=== PATIENT | female | born 1970 | race Caucasian/White ===

== ENCOUNTER 2022-08-16 16:27 | Emergency (ER) | payer OTHER, MEDICAID, SELFPAY ==
[2022-08-16 16:35] VITALS: BP 129/92; PULSE 79; RESP 18; TEMP 36.4; O2SAT 97; BMI 38.0
--- NOTE | 2022-08-16 16:46 | XR_ITS ---
[place] [id number] Patient Name: MISTI STONER MRN: [id number] date: 1970 Sex: F Assigned Patient Location: ER Current Patient Location: ER Accession/Order Number: [id number] Exam Date: 08/16/2022 16:52 Report Date: 08/16/2022 17:17 At the request of: RISHI FUNK Procedure: XR chest 2V EXAMINATION: XR chest 2V 08/16/2022 2:16 PM PDT, [id number]. HISTORY: cough TECHNIQUE: 2 views of the chest were acquired. COMPARISONS: None. FINDINGS: Lines/tubes/other: None. Heart and mediastinum: Within normal limits. Bones: No acute osseous abnormality. Lungs: Clear. Pleura: No pleural effusion or pneumothorax. Other: No pneumoperitoneum. IMPRESSION: No acute cardiopulmonary abnormality. Electronically authenticated by: MAGDY GRIFFIN Date: 08/16/2022 17:17
--- NOTE | 2022-08-16 16:46 | ED.GENADUL1 ---
Documented by User: Dana Hess 08/16/22 17:56 HPI - General Adult General Chief complaint: Shortness of Breath/Dyspnea Stated complaint: COUGH, PHLEGM, CHEST PAIN Time Seen by Provider: 08/16/22 16:33 Source: patient Mode of arrival: walk-in Limitations: no limitations History of Present Illness HPI narrative: 52-year-old female presents her chief complaint cough congestion. She states she is a smoker and she gets bronchitis yearly. She's had cough congestion and phlegm for last several months but is worsened over last few days. She unable to get into her doctor this week. She states this feels fatigued. She is afebrile nontoxic. Dry nonproductive cough. Related Data Home Medications Medication Instructions Recorded Confirmed buspirone 30 mg tablet 30 mg PO BID 08/16/22 08/16/22 gabapentin 300 mg capsule 300 mg PO Q8H 08/16/22 08/16/22 topiramate 25 mg tablet (Topamax) 25 mg PO DAILY 08/16/22 08/16/22 Previous Rx's Medication Instructions Recorded doxycycline hyclate 100 mg capsule 100 mg PO BID 10 days #20 caps 08/16/22 prednisone 50 mg tablet 50 mg PO DAILY 7 days #7 tabs 08/16/22 Allergies Allergy/AdvReac Type Severity Reaction Status Date / Time promethazine [From Phenergan] Allergy Intermediate Verified 08/16/22 16:40 Review of Systems ROS Narrative All Systems are negative except as noted/marked.All systems reviewed and otherwise negative PFSH PFSH Social History Smoking status: Current every day smoker Exam Narrative Exam Narrative: Nurses note and vital signs reviewed and patient is not hypoxic. General: The patient appears well and in no apparent distress. Patient is resting comfortably on cart. Skin: Warm, dry, no pallor noted. There is no rash noted. Head: Normocephalic, atraumatic Eye: Normal conjunctiva, no drainage, EOMI. PERRL Ears, Nose, Mouth, and Throat: oral mucosa is moist. Nares patent. Mouth without vesicles. Ear canals patent. Tm's without Erythema Cardiovascular: Regular Rate and Rhythm Respiratory: Patient is in no distress, no accessory muscle use, lungs are clear to auscultation, no wheezing, rales or rhonchi Back: non-tender, no CVA tenderness bilaterally to percussion. GI: Normal bowel sounds, no tenderness to palpation, no masses appreciated. No rebound, guarding, or rigidity noted. Musculoskeletal: The patient has no evidence of calf tenderness, no pitting edema, symmetrical pulses noted bilaterally Neurological: A&O x4, normal speech Psychiatric: Cooperative Constitutional Vital Signs - 24 hr 08/16/22 16:35 Temperature 97.5 F L Pulse Rate [Monitor] 79 Respiratory Rate 18 Blood Pressure [Right Arm] 129/92 H Pulse Oximetry 97 Oxygen Delivery Method Room Air Course Vital Signs Vital signs: Vital Signs Temperature 97.5 F L 08/16/22 16:35 Pulse Rate 79 08/16/22 16:35 Respiratory Rate 18 08/16/22 16:35 Blood Pressure 129/92 H 08/16/22 16:35 Pulse Oximetry 97 08/16/22 16:35 Oxygen Delivery Method Room Air 08/16/22 16:35 Temperature 97.5 F L 08/16/22 16:35 Pulse Rate 79 08/16/22 16:35 Respiratory Rate 18 08/16/22 16:35 Blood Pressure 129/92 H 08/16/22 16:35 Pulse Oximetry 97 08/16/22 16:35 Oxygen Delivery Method Room Air 08/16/22 16:35 Medical Decision Making MDM Narrative Medical decision making narrative: 52-year-old with a history of smoking presents with a nonproductive cough she states she's had for several weeks. Lung sounds are diminished throughout dry nonproductive cough x-ray shows no acute active disease. Medicated here with a DuoNeb breathing treatment. She does have inhalers at home. Patient with discharged home diagnosis of upper respiratory infection given a prescription for prednisone, doxycylline . pt cannot no smoking. She verbalized understanding. ECG Data Attestation: ?I have reviewed the pertinent ECG results. Interpretation: 1741 Sinus rhythm with rate 81 bpm ND interval 136 ms QRS duration 136 ms, no STEMI Discharge Plan Discharge Chief Complaint: Shortness of Breath/Dyspnea Clinical Impression: URI (upper respiratory infection) Patient Disposition: Home, Self-Care Time of Disposition Decision: 17:52 Condition: Good Prescriptions / Home Meds: New prednisone 50 mg tablet 50 mg PO DAILY 7 Days Qty: 7 0RF doxycycline hyclate 100 mg capsule 100 mg PO BID 10 Days Qty: 20 0RF No Action topiramate [Topamax] 25 mg tablet 25 mg PO DAILY buspirone 30 mg tablet 30 mg PO BID gabapentin 300 mg capsule 300 mg PO Q8H Instructions: Upper Respiratory Infection (ED) Stand Alone Forms: Portal Instructions Referrals: KERLINE RAJAN [Primary Care Provider] - 1 week Discharge Date/Time: 08/16/22 18:07 Documented by User: Katlin Purcell MD 08/18/22 10:09 HPI - General Adult General Chief complaint: Shortness of Breath/Dyspnea Stated complaint: COUGH, PHLEGM, CHEST PAIN Time Seen by Provider: 08/16/22 16:33 Related Data Home Medications Medication Instructions Recorded Confirmed buspirone 30 mg tablet 30 mg PO BID 08/16/22 08/16/22 gabapentin 300 mg capsule 300 mg PO Q8H 08/16/22 08/16/22 topiramate 25 mg tablet (Topamax) 25 mg PO DAILY 08/16/22 08/16/22 Previous Rx's Medication Instructions Recorded doxycycline hyclate 100 mg capsule 100 mg PO BID 10 days #20 caps 08/16/22 prednisone 50 mg tablet 50 mg PO DAILY 7 days #7 tabs 08/16/22 Allergies Allergy/AdvReac Type Severity Reaction Status Date / Time promethazine [From Phenergan] Allergy Intermediate Verified 08/16/22 16:40 PFSH PFSH Social History Smoking status: Current every day smoker Exam Constitutional Vital Signs - 24 hr 08/16/22 16:35 Temperature 97.5 F L Pulse Rate [Monitor] 79 Respiratory Rate 18 Blood Pressure [Right Arm] 129/92 H Pulse Oximetry 97 Oxygen Delivery Method Room Air Course Vital Signs Vital signs: Vital Signs Temperature 97.5 F L 08/16/22 16:35 Pulse Rate 79 08/16/22 16:35 Respiratory Rate 18 08/16/22 16:35 Blood Pressure 129/92 H 08/16/22 16:35 Pulse Oximetry 97 08/16/22 16:35 Oxygen Delivery Method Room Air 08/16/22 16:35 Temperature 97.5 F L 08/16/22 16:35 Pulse Rate 79 08/16/22 16:35 Respiratory Rate 18 08/16/22 16:35 Blood Pressure 129/92 H 08/16/22 16:35 Pulse Oximetry 97 08/16/22 16:35 Oxygen Delivery Method Room Air 08/16/22 16:35 Medical Decision Making MDM Narrative Medical decision making narrative: 52-year-old with a history of smoking presents with a nonproductive cough she states she's had for several weeks. Lung sounds are diminished throughout dry nonproductive cough x-ray shows no acute active disease. Medicated here with a DuoNeb breathing treatment. She does have inhalers at home. Patient with discharged home diagnosis of upper respiratory infection given a prescription for prednisone, doxycylline . pt cannot no smoking. She verbalized understanding. Attending physician attestation I have reviewed the mid-level documentation, agree with the documentation, medical decision making and treatment plan as outlined by the mid-level provider. Discharge Plan Discharge Chief Complaint: Shortness of Breath/Dyspnea Clinical Impression: URI (upper respiratory infection) Patient Disposition: Home, Self-Care Time of Disposition Decision: 17:52 Condition: Good Prescriptions / Home Meds: New prednisone 50 mg tablet 50 mg PO DAILY 7 Days Qty: 7 0RF doxycycline hyclate 100 mg capsule 100 mg PO BID 10 Days Qty: 20 0RF No Action topiramate [Topamax] 25 mg tablet 25 mg PO DAILY buspirone 30 mg tablet 30 mg PO BID gabapentin 300 mg capsule 300 mg PO Q8H Instructions: Upper Respiratory Infection (ED) Stand Alone Forms: Portal Instructions Referrals: KERLINE RAJAN [Primary Care Provider] - 1 week Discharge Date/Time: 08/16/22 18:07
[2022-08-16] MEDS: PREDNISONE 20 MG TABLET 40 MG PO (16:55)
[2022-08-16] MEDS: IPRATROPIUM/ALBUTEROL SULFATE 3 ML AMPUL.NEB IH (17:11)
--- NOTE | 2022-08-16 17:36 | ECG_ITS ---
[facility] Test Date: 2022-08-16 Pat Name: MISTI STONER Department: Room: - Gender: Female Behavioral Health Therapist: : 1970 Requested By: FANNIE JESSICA Order Number: [id number] Reading MD: FANNIE JESSICA Measurements Intervals [place] Rate: 81 P: 55 ME: 136 QRS: 52 QRSD: 82 T: 25 QT: 368 QTc: 406 Interpretive Statements 1100 Sinus rhythm 1102 Sinus arrhythmia Non-Specific T wave inversion in III 9110 normal ECG No previous ECG available for comparison Electronically Signed On 08-17-2022 6:33:32 EDT by FANNIE JESSICA
== END 2022-08-16 18:07 | disposition home or self-care (01) ==
PROVIDERS: Emergency Provider Emergency Medicine
DX: J06.9 Acute upper respiratory infection, unspecified (principal); F17.210 Nicotine dependence, cigarettes, uncomplicated; Z79.899 Other long term (current) drug therapy
CPT/HCPCS: 71046; 93005; 94640; 99284

== ENCOUNTER 2022-08-30 14:16 | Emergency (ER) | payer OTHER, MEDICAID, SELFPAY ==
[2022-08-30 14:25] VITALS: PULSE 88; RESP 18; TEMP 36.8; O2SAT 98; BMI 33.5
[2022-08-30 14:31] VITALS: BP 180/110
--- NOTE | 2022-08-30 15:19 | ED.GENADUL1 ---
HPI - General Adult General Chief complaint: Abdominal Pain Stated complaint: HEMMOROID Time Seen by Provider: 08/30/22 15:09 Source: patient Mode of arrival: walk-in Limitations: no limitations History of Present Illness HPI narrative: patient is a 52-year-old female who presents to the emergency department for the evaluation of hemorrhoids that been swollen and painful for the last several days. She states she has had some bleeding from the area and she has felt nauseous. She was recently seen in this emergency department for an upper respiratory infection. She states in the last several days she has had pain in the rectum associated with the swollen hemorrhoids, she has a history of the hemorrhoids but states they seem to be swollen more than normal for her. She called her doctor for an appointment and was called in a medication that she was not able to get as the pharmacy did not have it. She has been using Preparation H without improvement. She has had no fevers or vomiting. Related Data Home Medications Medication Instructions Recorded Confirmed buspirone 30 mg tablet 30 mg PO BID 08/16/22 08/16/22 gabapentin 300 mg capsule 300 mg PO Q8H 08/16/22 08/16/22 topiramate 25 mg tablet (Topamax) 25 mg PO DAILY 08/16/22 08/16/22 Previous Rx's Medication Instructions Recorded doxycycline hyclate 100 mg capsule 100 mg PO BID 10 days #20 caps 08/16/22 prednisone 50 mg tablet 50 mg PO DAILY 7 days #7 tabs 08/16/22 ketorolac 10 mg tablet 10 mg PO TID PRN pain #10 tabs 08/30/22 ondansetron 4 mg disintegrating 4 mg PO Q6H PRN nausea and 08/30/22 tablet vomiting #12 tabs Allergies Allergy/AdvReac Type Severity Reaction Status Date / Time promethazine [From Phenergan] Allergy Intermediate Verified 08/16/22 16:40 Review of Systems ROS Constitutional Denies: fever or chills Ears, nose, mouth, and throat Denies: throat pain or neck pain Respiratory Denies: shortness of breath or cough Gastrointestinal Reports: nausea and rectal pain; Denies: abdominal pain or vomiting Genitourinary Denies: painful urination Integumentary/Breast Denies: rash Allergic/Immunologic Denies: hives PFSH PFSH Social History Smoking status: Former smoker Exam Narrative Exam Narrative: Gen.: Awake, alert, in no distress Head: Normocephalic, atraumatic ENT: Moist mucous membranes Respiratory: No respiratory distress Gastrointestinal: Abdomen is soft, nondistended and nontender to palpation; rectum with swollen hemorrhoid, no thrombosis or active bleeding noted. Adjacent smaller hemorrhoids noted. Extremities: Moves extremities equally, no injuries noted Psych: Normal mood and affect Neuro: No focal neuro deficit Skin: Warm, dry, intact Constitutional Vital Signs - 24 hr 08/30/22 14:25 08/30/22 14:31 Temperature 98.2 F Pulse Rate [Monitor] 88 Respiratory Rate 18 Blood Pressure [Left Arm] 180/110 H Pulse Oximetry 98 Oxygen Delivery Method Room Air Course Vital Signs Vital signs: Vital Signs Temperature 98.2 F 08/30/22 14:25 Pulse Rate 88 08/30/22 14:25 Respiratory Rate 18 08/30/22 14:25 Pulse Oximetry 98 08/30/22 14:25 Oxygen Delivery Method Room Air 08/30/22 14:25 Temperature 98.2 F 08/30/22 14:25 Pulse Rate 88 08/30/22 14:25 Respiratory Rate 18 08/30/22 14:25 Blood Pressure 180/110 H 08/30/22 14:31 Pulse Oximetry 98 08/30/22 14:25 Oxygen Delivery Method Room Air 08/30/22 14:25 Medical Decision Making MDM Narrative Medical decision making narrative: exam is consistent with hemorrhoids and the patient is referred to general surgery. Invalid ring given for comfort, I discussed the prescriptions with the pharmacy and due to the patient's Medicaid, we are not able to call in multiple medications for her as they will be astronomically expensive. She is given a topical hemorrhoid cream for the pharmacist direction over the phone as well as prescriptions for Toradol and Zofran for home. Follow-up with general surgery for further evaluation and treatment and return to the Emergency Room if symptoms change or worsen. patient was encouraged to use a stool softener to avoid straining. Medical Records Medical records reviewed: Yes I reviewed the patient's medical records Discharge Plan Discharge Chief Complaint: Abdominal Pain Clinical Impression: Hemorrhoids Patient Disposition: Home, Self-Care Time of Disposition Decision: 15:17 Condition: Good Prescriptions / Home Meds: New ketorolac 10 mg tablet 10 mg PO TID PRN (Reason: pain) Qty: 10 0RF ondansetron 4 mg tablet,disintegrating 4 mg PO Q6H PRN (Reason: nausea and vomiting) Qty: 12 0RF No Action topiramate [Topamax] 25 mg tablet 25 mg PO DAILY buspirone 30 mg tablet 30 mg PO BID gabapentin 300 mg capsule 300 mg PO Q8H prednisone 50 mg tablet 50 mg PO DAILY 7 Days Qty: 7 0RF doxycycline hyclate 100 mg capsule 100 mg PO BID 10 Days Qty: 20 0RF Instructions: Hemorrhoids (ED) Additional Instructions: follow-up with general surgery Stand Alone Forms: Portal Instructions Referrals: KERLINE RAJAN [Primary Care Provider] - 1 week
[2022-08-30] MEDS: ONDANSETRON 4 MG RAPDIS TABLET SL (15:29)
== END 2022-08-30 15:32 | disposition home or self-care (01) ==
PROVIDERS: Emergency Provider Emergency Medicine Emergency Medical Services
DX: K64.9 Unspecified hemorrhoids (principal); Z87.891 Personal history of nicotine dependence; Z79.899 Other long term (current) drug therapy
CPT/HCPCS: 99283

== ENCOUNTER 2023-03-16 16:17 | Emergency (ER) | payer OTHER, SELFPAY ==
[2023-03-16 16:23] VITALS: BP 148/96; PULSE 83; RESP 16; TEMP 36.6; O2SAT 100; BMI 40.2
--- NOTE | 2023-03-16 17:11 | CT_ITS ---
The [address] [address] Patient Name: MISTI STONER MRN: [id number] date: 1970 Sex: F Assigned Patient Location: ER Current Patient Location: Accession/Order Number: [id number] Exam Date: 03/16/2023 17:47 Report Date: 03/16/2023 18:06 At the request of: JULIAN ABAD Procedure: CT lumbar spine wo con EXAM: CT scan of the lumbar spine without contrast. Dose reduction technique used: Automated exposure control and/or adjustment of the mA and/or kV according to patient size and/or use of iterative reconstruction technique. REASON FOR EXAM: lumbar radiculopathy COMPARISON: CT scan dated 06/08/2021 FINDINGS: No lumbar spine fractures or malalignment. Lumbar spine degenerative changes with multilevel disc space narrowing. Multilevel bilateral mild and moderate neural foraminal stenoses, worst at the L4-5 and L5-S1 levels. Multilevel spinal canal stenoses that are mild or moderate. No definite severe lumbar spinal canal stenoses. Remainder unremarkable. CT/CT lumbar spine wo con IMPRESSION: No acute lumbar spine abnormalities. Electronically authenticated by: DENISSE AVELAR Date: 03/16/2023 18:06
[2023-03-16 17:43] VITALS: BP 157/96; PULSE 98; RESP 20; O2SAT 96
--- NOTE | 2023-03-16 18:04 | ED_ITS ---
HPI - Back Pain/Injury General Chief Complaint: Back Pain/Injury Stated Complaint: BACK PAIN Time Seen by Provider: 03/16/23 17:11 Source: patient Mode of arrival: walk-in History of Present Illness HPI Narrative: Patient is a 52-year-old female who presents to the emergency department for the evaluation of low back pain radiating into the bilateral legs for the last 3 days. She states she has a history of similar back pain in the past but was not able to see her chiropractor for 2 more days. She is able to ambulate. She denies numbness or tingling of the extremities. No urinary incontinence. She denies any mechanism of injury or trauma. Related Data Home Medications Medication Instructions Recorded Confirmed buspirone 30 mg tablet 30 mg PO BID 08/16/22 08/16/22 gabapentin 300 mg capsule 300 mg PO Q8H 08/16/22 08/16/22 topiramate 25 mg tablet (Topamax) 25 mg PO DAILY 08/16/22 08/16/22 Previous Rx's Medication Instructions Recorded doxycycline hyclate 100 mg capsule 100 mg PO BID 10 days #20 caps 08/16/22 prednisone 50 mg tablet 50 mg PO DAILY 7 days #7 tabs 08/16/22 ketorolac 10 mg tablet 10 mg PO TID PRN pain #10 tabs 08/30/22 ondansetron 4 mg disintegrating 4 mg PO Q6H PRN nausea and 08/30/22 tablet vomiting #12 tabs ketorolac 10 mg tablet 10 mg PO TID PRN pain #10 tabs 03/16/23 methylprednisolone 4 mg tablets in See Rx Instructions .Route 03/16/23 a dose pack (Medrol (Christiano)) .COMPLEX #21 ea orphenadrine citrate 100 mg 100 mg PO BID PRN muscle pain #14 03/16/23 tablet,extended release tabs Allergies Allergy/AdvReac Type Severity Reaction Status Date / Time promethazine [From Phenergan] Allergy Intermediate Verified 08/16/22 16:40 Review of Systems ROS Constitutional Denies: fever or chills Ears, nose, mouth, and throat Denies: throat pain or nasal congestion Cardiovascular Denies: chest pain Respiratory Denies: shortness of breath or cough Gastrointestinal Denies: abdominal pain, nausea, vomiting or diarrhea Genitourinary Denies: painful urination or urinary incontinence Musculoskeletal Reports: back pain; Denies: neck pain or extremity pain Integumentary/Breast Denies: rash Neurological Denies: headache PFSH PFSH Social History Smoking status: Former smoker Exam Narrative Exam Narrative: Gen.: Awake, alert, in no distress Head: Normocephalic, atraumatic ENT: Moist mucous membranes Respiratory: No respiratory distress Back: No bony point tenderness of the T-spine or L-spine with no obvious deformity or step-off. Extremities: Moves extremities equally, no injuries noted; Normal dorsiflexion and plantarflexion of the lower extremities with no decrease in sensation to the medial thighs. Normal hip flexion bilaterally Psych: Normal mood and affect Neuro: No focal neuro deficit Skin: Warm, dry, intact Constitutional Vital Signs, click to edit/add: Last Vital Signs Temp 97.8 F 03/16/23 16:23 Pulse 98 H 03/16/23 17:43 Resp 20 03/16/23 17:43 BP 157/96 H 03/16/23 17:43 Pulse Ox 96 03/16/23 17:43 O2 Del Method Room Air 03/16/23 16:23 Course Vital Signs Vital signs: Vital Signs Temperature 97.8 F 03/16/23 16:23 Pulse Rate 83 03/16/23 16:23 Respiratory Rate 16 03/16/23 16:23 Blood Pressure 148/96 H 03/16/23 16:23 Pulse Oximetry 100 03/16/23 16:23 Oxygen Delivery Method Room Air 03/16/23 16:23 Temperature 97.8 F 03/16/23 16:23 Pulse Rate 98 H 03/16/23 17:43 Respiratory Rate 20 03/16/23 17:43 Blood Pressure 157/96 H 03/16/23 17:43 Pulse Oximetry 96 03/16/23 17:43 Oxygen Delivery Method Room Air 03/16/23 16:23 MDM - Back Pain/Injury MDM Narrative Medical decision making narrative: CT of the lumbar spine with degenerative changes at L4/L5. Patient is neurovascularly intact, normal neuroexam with no focal neurodeficits in the ER. Treated for symptoms with medication, rest, ice, gentle stretching. She was given a copy of low back exercises. Follow-up with chiropractor as scheduled an d PCP for an MRI if indicated. Return to the ER if symptoms change or worsen Medical Records Attestation: I reviewed the patient's medical records. Imaging Data CT lumbar spine: Attestation: I have reviewed the pertinent imaging results. Radiologist's impression: ITS Impressions Lumbar Spine CT 03/16/23 17:11 IMPRESSION: No acute lumbar spine abnormalities. Electronically authenticated by: DENISSE AVELAR Date: 03/16/2023 18:06 Discharge Plan Discharge Chief Complaint: Back Pain/Injury Clinical Impression: Lumbar radiculopathy Patient Disposition: Home, Self-Care Time of Disposition Decision: 18:14 Condition: Good Prescriptions / Home Meds: New ketorolac 10 mg tablet 10 mg PO TID PRN (Reason: pain) Qty: 10 0RF orphenadrine citrate 100 mg tablet extended release 100 mg PO BID PRN (Reason: muscle pain) Qty: 14 0RF methylprednisolone [Medrol (Christiano)] 4 mg tablets,dose pack See Rx Instructions .ROUTE .COMPLEX Qty: 21 0RF Rx Instructions: Taper as directed No Action topiramate [Topamax] 25 mg tablet 25 mg PO DAILY buspirone 30 mg tablet 30 mg PO BID gabapentin 300 mg capsule 300 mg PO Q8H prednisone 50 mg tablet 50 mg PO DAILY 7 Days Qty: 7 0RF doxycycline hyclate 100 mg capsule 100 mg PO BID 10 Days Qty: 20 0RF ketorolac 10 mg tablet 10 mg PO TID PRN (Reason: pain) Qty: 10 0RF ondansetron 4 mg tablet,disintegrating 4 mg PO Q6H PRN (Reason: nausea and vomiting) Qty: 12 0RF Instructions: Lumbar Radiculopathy (ED), Back Pain (ED), Lower Back Exercises (ED) Stand Alone Forms: Portal Instructions Referrals: KERLINE RAJAN [Primary Care Provider] - 1 week
[2023-03-16] MEDS: HYDROCODONE/ACET 5-325 MG TABLET 1 TAB PO (18:21)
[2023-03-16] MEDS: ORPHENADRINE 60 MG/ 2 ML VIAL IM (18:21)
[2023-03-16] MEDS: METHYLPREDNISOLONE SOD SUCC PF 125 MG/2 ML VIAL IM (18:21)
== END 2023-03-16 18:36 | disposition home or self-care (01) ==
PROVIDERS: Emergency Provider Emergency Medicine Emergency Medical Services
DX: M54.16 Radiculopathy, lumbar region (principal); Z79.899 Other long term (current) drug therapy; Z87.891 Personal history of nicotine dependence
CPT/HCPCS: 72131; 96372; 99285; J2360; J2930

== ENCOUNTER 2023-04-13 18:35 | Emergency (ER) | payer OTHER, SELFPAY ==
[2023-04-13] VITALS (24 sets, daily range): BP systolic 142–206; BP diastolic 98–132; PULSE 72–96; RESP 14–26; TEMP 36.3; O2SAT 91–100; BMI 41.0
--- OUTSIDE RECORDS SUMMARY | 2023-04-13 18:41 | XMS_ITS | CCD ---
Author Name Unknown Address [address] [place] [address] Organization [facility] Care Team Providers Care Veneer Drier Feeder Name Role Phone Yanet Loja Unavailable JodiMackenzie rainela Unavailable Kerline Rajan Unavailable KERLINE RAJAN Primary Care Physician Satinder, Dr. Kerline Chin Primary Care Unava kenji Roblero, Dr. Khoi Vaughn Attending Unavail Lamonte Ayers Referring Unavailable Lamonte Medrano Referring Unavailable Satinder, Dr. Kerline Chin Primary Care Unava kenji Roblero, Dr. Khoi Vaughn Attending Unavail able Dontae Maharaj Unavailable CRIS .HENRIETTA Attending Unavailable CRIS Pickett, HENRIETTA Admitting Unavailable SATINDER, KERLINE Primary Care Unavailable GLENN MARTINEZ Consulting Unavailabl e SATINDER, KERLINE Admitting Unavailable SATINDER, KERLINE Attending Unavailable SATINDER, KERLINE Primary Care Unavailable MISC, DR RIVERA Attending Unavailable MISC, DR RIVERA Admitting Unavailable SATINDER, KERLINE Primary Care Unavailable SNEHA WILLINGHAM Consulting Unavailable SATINDER, KERLINE Admitting Unavailable SATINDER, KERLINE Attending Unavailable DR MORENO APARICIO Consulting Unavailable SATINDER, KERLINE Primary Care Unavailable SATINDER, KERLINE Consulting Unavailable SATINDER, KERLINE Admitting Unavailable SATINDER, KERLINE Attending Unavailable SATINDER, KERLINE Consulting Unavailable SATINDER, KERLINE Primary Care Unavailable DR MARYAM HUGHES V Consulting Unavailable SATINDER, KERLINE Primary Care Unavailable VALERIE HARPER Attending Unavailable VALERIE HARPER Admitting Unavailable VALERIE HARPER Consulting Unavailable SATINDER, KERLINE Admitting Unavailable SATINDER, KERLINE Attending Unavailable DR MARYAM HUGHES V Consulting Unavailable SATINDER, KERLINE Primary Care Unavailable SATINDER, KERLINE Consulting Unavailable Asaad, Imad Unavailable RenettaNora Unavailable KERLINE RAJAN Primary Care Unavailable Skyler MORROW Attending Unavailable KERLINE RAJAN Primary Care Unavailable Skyler MORROW Attending Unavailable DO Kerline Rajan Primary Care Provider MD Shravan Haque Attending Provider [phone] Kerline Rajan Primary Care Unavailable Asaad Imbrandy Attending Unavailable Asaad, Imad Admitting Unavailable Allergies Allergy Classification Reported Allergen(s) Allergy Type Date of Onset Reaction(s) Facility (20 sources) Opioid Agonists Propensity to adverse reactions Unknown [employer] Other (20 sources) Promethazine; Translations: [promethazine] Drug Allergy Intolerance, function (observable entity) [facility] (2 sources) Levamisole Drug Allergy 07-16-19 13 [facility] Repository (1 source) Promethazine; Translations: [Phenerzine] Drug Allergy [facility] (1 source) Promethazine Drug Allergy 09-15-19 18 [facility] Repository Medications Current Medications Medication Drug Class(es) Dates Sig (Normalized) Sig (Original) [id number] 200 actuat albuterol 0.09 mg/actuat metered dose inhaler (14 sources) beta2-Adrenergic Agonist Start: 01-23-2021 take 2 puff(s) by inhalation four times daily as needed Albuterol Sulfate HFA 108 (90 Base) MCG/ACT 2 puffs Inhalation qid prn Jan, Active Start: 01-23-2021 take 2 puff(s) by in halation four times daily as needed Albuterol Sulfate HFA 108 (90 Base) MCG/ACT 2 puffs Inhalation qid prn Jan, Active Start: 12-09-2020 take 2 puff(s) by in halation every four hours as needed Albuterol Sulfate HFA 108 (90 Base) MCG/ACT 2 puffs as needed Inhalation every 4 hrs Dec, Active Start: 12-09-2020 take 2 puff(s) by in halation every four hours as needed Albuterol Sulfate HFA 108 (90 Base) MCG/ACT 2 puffs as needed Inhalation every 4 hrs Dec, Active Start: 04-25-2020 albuterol Refi lls(s) 0 Start Date: 04/25/20 Status: Ordered Start: 03-29-2019 take 2 puff(s) by in halation every six hours as needed Albuterol Sulfate HFA 108 (90 Base) MCG/ACT 2 puffs as needed Inhalation every 6 hrs for 30 days PRN Mar, Active Start: 03-29-2019 take 2 puff(s) by in halation every six hours as needed Albuterol Sulfate HFA 108 (90 Base) MCG/ACT 2 puffs as needed Inhalation every 6 hrs for 30 days PRN Mar, Active Start: 09-14-2017 take 1 puff(s) by in halation every six hours Albuterol Sulfate Active 2 PUFF INHALATION Q6H September 14, 2017 12:00am Blood Pressure Cuff - (16 sources) Start: 04-07-2022 Blood Pressure Cuff - as directed as directed daily Apr, Active busPIRone (20 sources) Start: 04-25-2020 busPIRone Oral , BID, Refills(s) 0 Start Date: 04/25/20 Status: Ordered Start: 09-14-2017 take 15 mg by mouth twice mina y Buspirone Active 15 MG PO Twice daily September 14, 2017 12:00am take 1 tablet by annette th every twelve hours busPIRone HCl 30 MG 1 tablet Orally Twice a day for 90 day(s) Active take 1 tablet by annette th every twenty-four hours busPIRone HCl 15 MG 1 tablet Orally Once a day Not-Taking ciprofloxacin 3 mg/ml / dexamethasone 1 mg/ml otic suspension (3 sources) Corticosteroid, Quinolone Antimicrobial Start: 04-29-2022 Ciprodex 0.3-0.1 % 4 drops into affected ear Otic Twice a day for 7 days Apr, Active cyclobenzaprine hydrochloride 10 mg oral tablet (10 sources) Muscle Relaxant Start: 10-21-2022 Cyclobenzaprine Active 10 MG PO As Directed December 24, 2022 12:00am fluticasone propionate 0.05 mg/actuat metered dose nasal spray (4 sources) Corticosteroid Start: 11-24-2022 take 2 spray(s) nasal route once daily Fluticasone Propionate 50 MCG/ACT 2 sprays Nasally Once a day for 14 day(s) Nov, Active gabapentin (20 sources) Anti-epileptic Agent Start: 04-25-2020 gabapentin Oral, Refills(s) 0 Start Date: 04/25/20 Status: Ordered Start: 09-14-2017 take 1 capsule by [facility] three times daily Gabapentin (Neurontin) 300 mg Capsule Active 300 MG PO Three times daily September 14, 2017 12:00am Gabapentin 300 M G TAKE 1 CAPSULE BY MOUTH 2 TO 3 TIMES PER DAY FOR 30 DAYS for 30 Active hydrocortisone acetate 25 mg/ml / pramoxine hydrochloride 10 mg/ml topical cream (11 sources) Corticosteroid Start: 08-30-2022 Hydrocortisone Richardson-Pramoxine 2.5-1 % 1 application Rectal Three times a day for 14 days Aug, Active hydrOXYzine hydrochloride 25 mg oral tablet (20 sources) Antihistamine Start: 02-04-2022 take 1 tablet by mouth every twenty-four hours hydrOXYzine HCl 25 MG 1 tablet at bedtime as needed Orally Once a day for 30 day(s) Feb, Active Start: 10-01-2020 take 1 capsule by [facility] every six hours Vistaril 50 MG 1 capsule as needed Orally every 6 hrs for 30 day(s) Sep, Not-Taking ibuprofen 600 mg oral tablet (1 source) Nonsteroidal Anti-inflammatory Drug Start: 09-14-2017 take 600 mg by mouth four times daily Ibuprofen Active 600 MG PO Four times daily September 14, 2017 12:00am methylPREDNISolone 4 mg oral tablet (20 sources) Corticosteroid Start: 11-24-2022 Medrol 4 MG as directed Orally As Directed for 6 days Nov, Active Start: 12-09-2020 methylPREDNISo lone 4 MG as directed Orally Once a day for 6 days Dec, Active Start: 07-18-2019 Depo-Medrol 80 mg July, 80 mg 24 hr metoprolol succinate 100 mg extended release oral tablet (10 sources) beta-Adrenergic Stanislav Start: 04-25-2020 take 1 mg by mouth once daily metoprolol 100 mg ER Tab mg tab(s), Oral, Daily, Refills(s) 0 Start Date: 04/25/20 Status: Ordered Start: 09-14-2017 End: 12-24-2022 take 100 mg by mouth once daily Metoprolol Tartrate Discontinued 100 MG PO Daily September 14, 2017 12:00am December 24, 2022 6:57am nabumetone 750 mg oral tablet (2 sources) Nonsteroidal Anti-inflammatory Drug Start: 04-25-2020 take 1 mg by mouth once daily nabumetone 750 mg Tab mg tab(s), Oral, Daily, Refills(s) 0 Start Date: 04/25/20 Status: Ordered Omeprazole (20 sources) Proton Pump Inhibitor Start: 04-25-2020 omeprazo le Oral, Daily, Refills(s) 0 Start Date: 04/25/20 Status: Ordered Start: 09-14-2017 take 20 mg by mouth once daily Omeprazole Active 20 MG PO Daily September 14, 2017 12:00am Omeprazole 40 MG TAKE 1 CAPSULE BY MOUTH EVERY DAY FOR 30 DAYS for 90 Active ondansetron 8 mg oral tablet (20 sources) Serotonin-3 Receptor Antagonist Start: 03-12-2020 Ondansetron Hcl Active 8 MG PO As Directed December 24, 2022 12:00am take 1 tablet by annette th three times daily as needed Zofran 4 MG 1 tablet Orally 3 times a da y prn Not-Taking polyethylene glycol 3350 016643 mg / potassium chloride 2970 mg / sodium bicarbonate 6740 mg / sodium chloride 5860 mg / sodium sulfate 30950 mg powder for oral solution (5 sources) Osmotic Laxative Start: 11-18-2022 PEG-3350/Electrolytes 236 GM as directed Orally once a day for 1 Nov, Active pramoxine (5 sources) Start: 11-18-2022 Pramoxine HCl 1 % 1 application to affected area as needed Externally Three times a day for 30 days Nov, Active predniSONE 20 mg oral tablet (3 sources) Start: 01-23-2021 take 1 tablet by mouth every twelve hours predniSONE 20 MG 1 tablet Orally bid for 5 day(s) Jan, Active Topamax (20 sources) Start: 04-25-2020 Topamax Oral, BID, Refills(s) 0 Start Date: 04/25/20 Status: Ordered Start: 09-14-2017 take 1 tablet by annette th once daily Topiramate (Topamax) 100 mg Tablet Active 100 MG PO Daily September 14, 2017 12:00am triamcinolone acetonide 0.001 mg/mg topical ointment (12 sources) Corticosteroid Start: 08-26-2022 Triamcinolone Acetonide 0.1 % 1 application Externally Once a day for 30 days Aug, Active valACYclovir 1000 mg oral tablet (20 sources) Herpesvirus Nucleoside Analog DNA Polymerase Inhibitor, Herpes Simplex Virus Nucleoside Analog DNA Polymerase Inhibitor, Herpes Zoster Virus Nucleoside Analog DNA Polymerase Inhibitor Start: 04-25-2020 valacyclovir Oral, Refills(s) 0 Start Date: 04/25/20 Status: Ordered Start: 09-28-2019 take 1000 mg by mout h once daily Valacyclovir Active 1000 MG PO Daily December 24, 2022 12:00am Start: 07-04-2016 take 1 tablet by annette th every twelve hours Valtrex 500 MG 1 tablet Orally every 12 hrs for 7 days Jun, Active varenicline 1 mg oral tablet (12 sources) Partial Cholinergic Nicotinic Agonist Start: 08-26-2022 Varenicline Tartrate 0.5 MG X 11 & 1 MG X 42 as directed Orally as directed for 30 days Aug, Active venlafaxine (20 sources) Serotonin and Norepinephrine Reuptake Inhibitor Start: 04-25-2020 venlafaxine Oral, Refills(s) 0 Start Date: 04/25/20 Status: Ordered Start: 09-14-2017 take 150 mg by mouth once mina y Venlafaxine Active 150 MG PO Daily September 14, 2017 12:00am take 1 capsule by mo [facility] every twenty-four hours Venlafaxine HCl ER 150 MG 1 Capsule Orally Once a day for 30 days Active take 1 capsule by mo uth every twenty-four hours Venlafaxine HCl ER 37.5 MG 1 Capsule Orally Once a day for 90 day(s) Active Completed/Discontinued Medications Medication Drug Class(es) Dates Sig (Normalized) Sig (Original) Albuterol Sulfate (Ventolin Hfa) 90 mcg/actuation Hfa Aerosol Inhaler (1 source) Start: 09-14-2017 End: 12-24-2022 take 1 puff(s) by inhalation four times daily Albuterol Sulfate (Ventolin Hfa) 90 mcg/actuation Hfa Aerosol Inhaler Discontinued 2 PUFF INHALATION Four times daily September 14, 2017 12:00am December 24, 2022 6:56am amoxicillin 875 mg oral tablet (4 sources) Penicillin-class Antibacterial Start: 10-20-2020 take 1 tablet by mouth every twelve hours Amoxicillin 875 MG 1 tablet Orally every 12 hrs for 7 days Oct, Not-Taking amoxicillin 875 mg / clavulanate 125 mg oral tablet (7 sources) Penicillin-class Antibacterial Start: 10-29-2022 take 1 tablet by mouth every twelve hours Amoxicillin-Pot Clavulanate 875-125 MG 1 tablet Orally every 12 hrs for 7 days Oct, Not-Taking clobetasol propionate 0.0005 mg/mg topical ointment (17 sources) Corticosteroid Start: 04-12-2017 Clobetasol Propionate 0.05 % 1 application to affected area Externally Twice a day for 7 days then twice weekly. Apr, Not-Taking 12 hr guaiFENesin 600 mg extended release oral tablet (1 source) Start: 09-15-2017 End: 12-24-2022 take 2 tablets by mouth twice daily, then take 1 tablet by mouth every twelve hours Guaifenesin (Mucinex) 600 mg Tablet Extended Release 12hr Discontinued 1200 MG PO Twice daily 28 7 September 15, 2017 12:00am December 24, 2022 6:56am lisinopril 20 mg oral tablet (1 source) Angiotensin Converting Enzyme Inhibitor Start: 09-14-2017 End: 12-24-2022 take 20 mg by mouth once daily Lisinopril Discontinued 20 MG PO Daily September 14, 2017 12:00am December 24, 2022 6:57am loperamide hydrochloride 2 mg oral tablet (8 sources) Opioid Agonist Start: 09-14-2017 End: 12-24-2022 Loperamide Discontinued 2 MG PO EVERY 1-3 HOURS September 14, 2017 12:00am December 24, 2022 6:57am Loperamide HCl N ot-Taking loratadine 10 mg oral tablet (1 source) Start: 09-14-2017 End: 12-24-2022 take 10 mg by mouth once daily Loratadine Discontinued 10 MG PO Daily September 14, 2017 12:00am December 24, 2022 6:57am potassium citrate 10 meq extended release oral tablet (20 sources) Start: 11-11-2021 take 2 tablets by mouth twice daily potassium CITRATE 10 mEq ER Tab 20 mEq, 2 tab(s), Oral, BID, Refill(s) 0 Start Date: 11/11/21 Status: Ordered promethazine hydrochloride 1.25 mg/ml oral solution (1 source) Phenothiazine Start: 09-14-2017 End: 12-24-2022 take 1 mL by mouth every six hours Promethazine Discontinued 5 ML PO Every 6 hours September 14, 2017 12:00am December 24, 2022 6:58am Toradol 30 mg/ml (20 sources) Start: 03-12-2020 Toradol 30 mg/ ml Mar, 60 mg Start: 01-21-2020 Toradol 30 mg/ ml Jan, 60 mg traMADol hydrochloride 50 mg oral tablet (1 source) Opioid Agonist Start: 09-15-2017 End: 09-20-2017 take 1 tablet by mouth every twelve hours Tramadol (Ultram) 50 mg tablet Discontinued 50 MG PO Every 12 hours 10 September 15, 2017 9:57am September 20, 2017 12:01am traZODone hydrochloride 50 mg oral tablet (17 sources) Serotonin Reuptake Inhibitor Start: 03-24-2020 take 1 tablet by mouth every twenty-four hours traZODone HCl 50 MG 1 tablet at bedtime as needed Orally Once a day for 90 day(s) PRN Mar, Not-Taking Problems Active Problems Problem Classification Problem Date Documented Da te Episodic/Chronic Acute myocardial infarction (1 source) Myocardial infarction; Translations: [Non-ST elevation (NSTEMI) myocardial infarction] 09-14-2017 Chronic Anxiety disorders (20 sources) Anxiety; Translations: [Anxiety disorder, unspecified] Onset: 2 Resolved: 2 Chronic Calculus of urinary tract (11 sources) Kidney stone; Translations: [Calculus of kidney] Onset: 2 Episodic Chronic obstructive pulmonary disease and bronchiectasis (1 source) Chronic obstructive lung disease; Translations: [Chronic obstructive pulmonary disease, unspecified] 09-14-2017 Chronic Disorders of lipid metabolism (2 sources) Hyperlipidemia 04-25-2020 Chronic Esophageal disorders (20 sources) Gastroesophageal reflux disease; Translations: [Gastro-esophageal reflux disease without esophagitis] Onset: 2 Resolved: 2 Chronic Essential hypertension (20 sources) Essential hypertension; Translations: [Essential (primary) hypertension] Onset: 2 Resolved: 2 Chronic Gastrointestinal hemorrhage (1 source) Melena; Translations: [Melena] Onset: 3 Episodic Genitourinary symptoms and ill-defined conditions (5 sources) Nocturia; Translations: [Nocturia] Onset: 2 Episodic Headache; including migraine (20 sources) Tension-type headache; Translations: [Tension-type headache, unspecified, not intractable] Onset: 2 Resolved: 2 Chronic Hemorrhoids (6 sources) Hemorrhoids; Translations: [Unspecified hemorrhoids] Episodic Miscellaneous mental health disorders (20 sources) Psychophysiologic insomnia; Translations: [Psychophysiologic insomnia] Chronic Mood disorders (20 sources) Symptoms of depression; Translations: [Major depressive disorder, single episode, unspecified] Chronic Nausea and vomiting (10 sources) Nausea; Translations: [Nausea] Onset: 2 Resolved: 2 Episodic Osteoarthritis (17 sources) Primary gonarthrosis, bilateral; Translations: [Bilateral primary osteoarthritis of knee] Onset: 2 Chronic Other ear and sense organ disorders (1 source) Other infective otitis externa, bilateral Episodic Other ear and sense organ disorders (1 source) Acute eczematoid otitis externa, left ear Episodic Other ear and sense organ disorders (1 source) Cellulitis of left external ear Episodic Other female genital disorders (20 sources) Vaginal discomfort; Translations: [Unspecified condition associated with female genital organs and menstrual cycle] Episodic Other gastrointestinal disorders (2 sources) Irritable bowel syndrome 04-25-2020 Chronic Other gastrointestinal disorders (1 source) Irritable bowel syndrome without diarrhea; Translations: [IRRITABLE BOWEL SYND W/O DIARRHEA] Onset: 2 Chronic Other hereditary and degenerative nervous system conditions (4 sources) Restless legs syndrome; Translations: [RESTLESS LEGS SYNDROME] Onset: 3 Chronic Other nervous system disorders (20 sources) Carpal tunnel syndrome; Translations: [Carpal tunnel syndrome, bilateral upper limbs] Chronic Other nervous system disorders (20 sources) Chronic pain; Translations: [Other chronic pain] Chronic Other nervous system disorders (1 source) Other chronic pain Onset: 2 Resolved: 2 Chronic Other nervous system disorders (1 source) Carpal tunnel syndrome, unspecified upper limb Chronic Other nervous system disorders (1 source) Neuropathy; Translations: [Polyneuropathy, unspecified] 09-14-2017 Chronic Other nervous system disorders (20 sources) Paresthesia of left upper limb; Translations: [Paresthesia of skin] Episodic Other nervous system disorders (20 sources) Paresthesia of right upper limb; Translations: [Paresthesia of skin] Episodic Other screening for suspected conditions (not mental disorders or infectious disease) (3 sources) Encounter for screening for cardiovascular disorders; Translations: [Encounter for screening mammogram for malignant neoplasm of breast] Onset: 2 Resolved: 2 Episodic Other upper respiratory disease (20 sources) Seasonal allergy; Translations: [Other seasonal allergic rhinitis] Chronic Other upper respiratory infections (6 sources) Acute upper respiratory infection, unspecified; Translations: [Acute pharyngitis, unspecified] Onset: 2 Resolved: 2 Episodic Spondylosis; intervertebral disc disorders; other back problems (10 sources) Degeneration of lumbar intervertebral disc; Translations: [Other intervertebral disc degeneration, lumbar region] Chronic Spondylosis; intervertebral disc disorders; other back problems (1 source) Chronic back pain ; Translations: [Dorsalgia, unspecified] 09-14-2017 Episodic Substance-related disorders (20 sources) Nicotine dependence; Translations: [Nicotine dependence, cigarettes, uncomplicated] Onset: 2 Chronic Comment on above: Added secondary to d ocumentation in Social History. 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; Translations: [Herpesviral vulvovaginitis] Onset: 2 Resolved: 2 Chronic Past or Other Problems Problem Classification Problem Date Documented Da te Episodic/Chronic Chronic obstructive pulmonary disease and bronchiectasis (2 sources) Bronchitis, not specified as acute or chronic; Translations: [Bronchitis J40] Onset: 12-09-2020 Resolved: 01-23-2021 Episodic Immunizations and screening for infectious disease (3 sources) Contact with and (suspected) exposure to other viral communicable diseases; Translations: [Contact with and (suspected) exposure to other viral communicable diseases Z20.828] Onset: 12-09-2020 Resolved: 11-24-2021 Episodic Other aftercare (2 sources) Encounter for therapeutic drug level monitoring; Translations: [ENC THERAPEUTC DRUG LEVL MONITORING] Onset: 10-05-2021 Resolved: 10-05-2021 Episodic Other aftercare (1 source) Other intermediate manager (current) drug therapy; Translations: [OTH REIMBURSEMENT AUDITOR CURRENT DRUG THERAPY] Onset: 10-26-2021 Episodic Other circulatory disease (4 sources) Other specified symptoms and signs involving the circulatory and respiratory systems; Translations: [OTH SPEC SX SIGNS INVLV CIRC RS] Onset: 07-23-2021 Episodic Other non-traumatic joint disorders (2 sources) Pain in right knee; Translations: [PAIN IN RIGHT KNEE] Onset: 10-05-2021 Resolved: 10-05-2021 Episodic Other non-traumatic joint disorders (1 source) Pain in left knee Onset: 10-05-2021 Resolved: 10-05-2021 Episodic Unclassified (1 source) Cough, unspecified type R05.9 Onset: 10-07-2021 Resolved: 10-07-2021 Unclassified (1 source) COUGH, UNSPECIFIED; Translations: [COUGH, UNSPECIFIED] Onset: 10-23-2021 Unclassified (1 source) Chronic cough R05.3 Viral infection (1 source) COVID-19 Onset: 11-24-2021 Resolved: 11-24-2021 Results Test Name Value Interpretation Reference Range Facility [facility] 11-24-2022 S. pyogenes Org specific cx Ql (Throat) Negative [facility] Other Quick St[facility] Other Ambulatory Visit Summaryon 0 11-15-2022 Ambulatory Visit Summary GAIL REINOSO :1970 Visit Date:11/15/2022 Ambulatory Visit Instructions Your Diagnosis Kidney stone Nocturia Tests Performed Urnls Dip Stick Auto w/o Microscopy POC [id number] XR Abdomen 1 View -- Results Pending -- Please visit your patient portal for your results or contact your primary care physician. Your Care Team Attending Physician - Skyler MORROW MD Primary Care Physician - KERLINE RAJAN DO This Is Your Medications List Contact prescribing physician if questions or concerns albuterol busPIRone gabapentin metoprolol (metoprolol 100 mg ER Tab) nabumetone (nabumetone 750 mg Tab) omeprazole potassium citrate (potassium CITRATE 10 mEq ER Tab) topiramate (Topamax) valacyclovir venlafaxine Procedures Performed Fluoroscopy guided ESWL (extracorporeal shockwave lithotripsy) of calculus of left kidney (08/16/2016), Abdominal hysterectomy, Appendectomy, Carpal tunnel release, Cholecystectomy, Colonoscopy. Discharge Vitals Heart Rate (Peripheral) 83 Blood Pressure 146/90 Height 68 in Height 173 cm Weight 224.4 lb Weight 102 kg BMI 34.08 What to do next Scheduled Follow-Up Appointments Tuesday 3:00 PM EDT With: Skyler MORROW MD Where: [facility] Patient Educationon 11-16-19 23 Patient Education Nephrology Dietary Guidelines to Help Prevent Kidney Stones Kidney stones are deposits of minerals and salts that form inside your kidneys. Your risk of developing kidney stones may be greater depending on your diet, your lifestyle, the medicines you take, and whether you have certain medical conditions. Most people can lower their chances of developing kidney stones by following the instructions below. Your dietitian may give you more specific instructions depending on your overall health and the type of kidney stones you tend to develop. What are tips for following this plan? Reading food labels ? Choose foods with no salt added or low-salt labels. Limit your salt (sodium) intake to less than 1,500 mg a day. ? Choose foods with calcium for each meal and snack. Try to eat about 300 mg of calcium at each meal. Foods that contain 200?500 mg of calcium a serving include: ? 8 oz (237 mL) of milk, calcium-fortifiednon- dairy milk, and calcium-fortifiedfrui t juice. Calcium-fortified means that calcium has been added to these drinks. ? 8 oz (237 mL) of kefir, yogurt, and soy yogurt. ? 4 oz (114 g) of tofu. ? 1 oz (28 g) of cheese. ? 1 cup (150 g) of dried figs. ? 1 cup (91 g) of cooked broccoli. ? One 3 oz (85 g) can of sardines or mackerel. Most people need 1,000?1,500 mg of calcium a day. Talk to your dietitian about how much calcium is recommended for you. Shopping ? Buy plenty of fresh fruits and vegetables. Most people do not need to avoid fruits and vegetables, even if these foods contain nutrients that may contribute to kidney stones. ? When shopping for convenience foods, choose: ? Whole pieces of fruit. ? Pre-made salads with dressing on the side. ? Low-fat fruit and yogurt smoothies. ? Avoid buying frozen meals or prepared deli foods. These can be high in sodium. ? Look for foods with live cultures, such as yogurt and kefir. ? Choose high-fiber grains, such as whole-wheat breads, oat bran, and wheat cereals. Cooking ? Do not add salt to food when cooking. Place a salt shaker on the table and allow each person to add his or her own salt to taste. ? Use vegetable protein, such as beans, textured vegetable protein (TVP), or tofu, instead of meat in pasta, casseroles, and soups. Meal planning ? Eat less salt, if told by your dietitian. To do this: ? Avoid eating processed or pre-made food. ? Avoid eating fast food. ? Eat less animal protein, including cheese, meat, poultry, or fish, if told by your dietitian. To do this: ? Limit the number of times you have meat, poultry, fish, or cheese each week. Eat a diet free of meat at least 2 days a week. ? Eat only one serving each day of meat, poultry, fish, or seafood. ? When you prepare animal protein, cut pieces into small portion sizes. For most meat and fish, one serving is about the size of the palm of your hand. ? Eat at least five servings of fresh fruits and vegetables each day. To do this: ? Keep fruits and vegetables on hand for snacks. ? Eat one piece of fruit or a handful of berries with breakfast. ? Have a salad and fruit at lunch. ? Have two kinds of vegetables at dinner. ? Limit foods that are high in a substance called oxalate. These include: ? Spinach (cooked), rhubarb, beets, sweet potatoes, and Singaporean chard. ? Peanuts. ? Potato chips, russian fries, and baked potatoes with skin on. ? Nuts and nut products. ? Chocolate. ? If you regularly take a diuretic medicine, make sure to eat at least 1 or 2 servings of fruits or vegetables that are high in potassium each day. These include: ? Avocado. ? Banana. ? [place], prune, carrot, or tomato juice. ? Baked potato. ? Cabbage. ? Beans and split peas. Lifestyle ? Drink enough fluid to keep your urine pale yellow. This is the most important thing you can do. Spread your fluid intake throughout the day. ? If you drink alcohol: ? Limit how much you use to: ? 0?1 drink a day for women who are not . ? 0?2 drinks a day for men. ? Be aware of how much alcohol is in your drink. In the [place] one drink equals one 12 oz bottle of beer (355 mL), one 5 oz glass of wine (148 mL), or one 1? oz glass of hard liquor (44 mL). ? Lose weight if told by your health care provider. Work with your dietitian to find an eating plan and weight loss strategies that work best for you. General information ? Talk to your health care provider and dietitian about taking daily supplements. You may be told the following depending on your health and the cause of your kidney stones: ? Not to take supplements with vitamin C. ? To take a calcium supplement. ? To take a daily probiotic supplement. ? To take other supplements such as magnesium, fish oil, or vitamin B6. ? Take cjry-uhw-befugzo and prescription medicines only as told by your health care provider. These include supplements. What foods should I limit? Limit your in (more content not included)... [facility] Reminderson 11-15-2022 Reminders - From: Renee Ghotra To: LUZ Leahyjeri Morrow; Sent: 11/15/2022 17:45:11 EDT Show up: 10/16/2023 17:45:00 EDT Subject: KUB prior to appt Reminder Message Please Remember to:_have pt get KUB done prior to appt in 1 year. Normal [facility] Office/Clinic Noteon 11-15-2022 Urology Office/Clinic Note Chief Complaint 1 year follow up HPI Staff 1 year F/U with KUB. Pt didn't get any imaging done Previous DX: kidney stones, nocturia Encouraged pt to resume taking Potassium Citrate ( stopped taking per last encounter, because she does not like to take medicine ) Dysuria: denies pain or burning Incomplete bladder emptying: denies Hematuria: denies visible blood Frequency: denies Urgency: denies Nocturia: 3x a night Stream: denies hesitancy, denies weak stream Leaking: denies Post void dripping: denies Wearing pads/ Depends: denies Urge incontinence: denies Stress incontinence: denies Incontinence without Sensory Awareness: denies Abdominal pain: denies Flank pain: denies Sexual complaints: denies History of Present Illness Tests reviewed: reviewed UA, KUB I have reviewed the previous health record information and history for this patient from [facility]. I have reviewed and verified the staff HPI to be accurate for this encounter. There have been no associated fever, chills, flank pain, or blood in the urine. Denies any urinary infections since last encounter. Review of Systems PHQ Score Initial Depression Screen Score: 0 ROS - Provider Constitutional: denies weight loss, denies hot flashes. Eyes: denies eye problems. Gastrointestinal: denies nausea, denies vomiting. Cardiovascular: denies chest pain or angina. Integumentary: no dryness Musculoskeletal: denies musculoskeletal symptoms. ENMT: denies otolaryngeal symptoms. Respiratory: no shortness of breath. Heme/Lymph: denies easy bleeding tendency, denies easy bruising tendency. Psychiatric: no confusion, no anxiety. Genitourinary: See HPI. Physical Exam Vitals & Measurements HR: 83(Peripheral) BP: 146/90 HT: 68 in HT: 173 cm WT: 102 kg WT: 224.4 lb BMI: 34.08 General Appearance: alert , no acute distress, well nourished, well developed female. Genitourinary: bladder nonpalpable, no flank pain. Assessment/Plan 1. Kidney stone (N20.0: Calculus of kidney) S/p multiple bilateral lithotripsy (most recent 05/2020). Metabolic workup done 06/30/20 - 2150cc total volume. KUB done 11/11/21 at [facility] - stable left, nephrolithiasis. UA today negative for blood and infection. Pt states she stopped taking potassium citrate 20 mEq due to taking so many medications. Advised pt to take this if she would like to prevent stone formation. Reports she is always thirsty and drinks about three 32oz bottles of water. Pt to get KUB now. Follow up with repeat KUB in 1 yr or sooner if needed. Pt understands and agrees with plan. 2. Nocturia (R35.1: Nocturia) Chronic. 1-2x/night. Reports she drinks a lot of water and drinks up until she does to bed. Follow-up With When Contact Information GEOVANNA MORA, Skyler Nunez, [facility] [address], [place] [address]- [phone] Additional Instructions: KUB now and in 1 yr Patient Education Dietary Guidelines to Help Prevent Kidney Stones Renee Paulino, personally scribed for Dr. Morrow on 11/15/2022 16:57:04. . Documentation recorded by the scribeRenee, accurately reflects the services(s) I performed and decisions made by me. Authenticated by Dr. Morrow on 11/15/2022 16:58:19. Problem List/Past Medical History Ongoing Anxiety GERD (gastroesophageal reflux disease) Hyperlipidemia Hypertension IBS (irritable bowel syndrome) Kidney stone Migraines Nocturia Renal calculus Smoker Historical No qualifying data Procedure/Surgical History Fluoroscopy guided ESWL (extracorporeal shockwave lithotripsy) of calculus of left kidney (08/16/2016), Abdominal hysterectomy, Appendectomy, Carpal tunnel release, Cholecystectomy, Colonoscopy. Medications albuterol busPIRone, Oral, BID gabapentin, Oral metoprolol 100 mg ER Tab, Oral, Daily nabumetone 750 mg Tab, Oral, Daily omeprazole, Oral, Daily potassium CITRATE 10 mEq ER Tab, 20 mEq= 2 tab(s), Oral, BID Topamax, Oral, BID valacyclovir, Oral venlafaxine, Oral Allergies Phenerzine (Intolerance) Social History Tobacco 5-9 cigarettes (between 1/4 to 1/2 pack)/day in last 30 days, Smoker, current status unknown Tobacco Use:. Never Smokeless Tobacco Use:. Cigarettes, Started age 20.0 Years. Yes, 11/15/2022 Never (less than 100 in lifetime) Tobacco Use:., 04/25/2020 Family History Hypertension: Sister. Kidney stones: Father. Immunizations Vaccine Date Status diphtheria/pertussis, acel/tetanus adult 06/24/2016 Recorded Lab Results Ambulatory Point of Care Results Bilirubin Urine Dipstick: Negative (11/15/22 16:13:00) Blood Urine Dipstick: Negative (11/15/22 16:13:00) Glucose Urine Dipstick: Negative (11/15/22 16:13:00) Ketones Urine Dipstick: Negative (11/15/22 16:13:00) Leukocytes Urine Dipstick: Negative (11/15/22 16:13:00) Nitrite Urine Dipstick: Negative (11/15/22 16:13:00) Protein Urine Dipstick: Negativ (more content not included)... [facility] Comment on above: Result Comment: Elec tronically Signed By: Skyler MORROW MD\.br\Date and Time Signed: 11/15/22 16:58 EDT\.br\Electronically Co-Signed By: Renee Ghotra\.br\Date and Time Co-Signed: 11/15/22 16:57 EDT CBC AUTO DIFFon 07-07-2022 BASO # 0.0 103/ul Normal 0.0-0.1 [facility] Comment on above: Performed By: #### C BC #### [facility] [address] [address] [address] Jacki Jones Basophils/100 WBC (Bld) 0.4 % Normal 0.2-2.0 [facility] Comment on above: Performed By: #### C BC #### [facility] [address] [place] [address] Dr. Jacki Jones EO # 0.8 103/ul Critically high 0.0-0.7 [facility] Comment on above: Performed By: #### C BC #### [facility] [address] [place] [address] Dr. Jacki Jones Eosinophils/100 WBC (Bld) 8.7 % Critically high 0.9-7.0 [facility] Comment on above: Performed By: #### C BC #### [facility] [address] [place] [address] Dr. Jacki Jones Erythrocyte distribution width (RBC) [Ratio] 13.4 % Normal 11.0-15.0 [facility] Comment on above: Performed By: #### C BC #### [facility] [address] [place] [address] Dr. Jacki Jones Hematocrit (Bld) [Volume fraction] 41.9 % Normal 36.0-48.0 [facility] Comment on above: Performed By: #### C BC #### [facility] [address] [place] [address] Dr. Jacki Jones Hemoglobin (Bld) [Mass/Vol] 13.3 g/dL Normal 12.0-16.0 [facility] Comment on above: Performed By: #### C BC #### [facility] [address] [place] [address] Dr. Jacki Jones IG # 0.06 10e3/ul Critically high 0.00-0.03 [facility] Comment on above: Performed By: #### C BC #### [facility] [address] [place] [address] Dr. Jacki Jones IG % 0.7 % Critically high 0.0-0.5 [facility] Comment on above: Performed By: #### C BC #### [facility] [address] [place] [address] Dr. Jacki Jones LYMPH # 2.2 103/ul Normal 1.2-3.8 [facility] Comment on above: Performed By: #### C BC #### [facility] [address] [place] [address] Dr. Jacki Jones Lymphocytes/100 WBC (Bld) 24.5 % Normal 20.5-60.0 [facility] Comment on above: Performed By: #### C BC #### [facility] [address] [place] [address] Dr. Jacki Jones MANUAL DIFF REQ NO Normal [facility] Comment on above: Performed By: #### C BC #### [facility] [address] [place] [address] Dr. Jacki Jones MCH (RBC) [Entitic mass] 28.9 pg Normal 26.7-34.0 [facility] Comment on above: Performed By: #### C BC #### [facility] [address] [place] [address] Dr. Jcaki Jones MCHC (RBC) [Mass/Vol] 31.7 g/dL Normal 29.9-35.2 [facility] Comment on above: Performed By: #### C BC #### [facility] [address] [place] [address] Dr. Jacki Jones MCV (RBC) [Entitic vol] 91.1 fL Normal 81.0-99.0 [facility] Comment on above: Performed By: #### C BC #### [facility] [address] [place] [address] Dr. Jacki Jones MONO # 0.3 103/ul Normal 0.3-0.8 [facility] Comment on above: Performed By: #### C BC #### [facility] [address] [place] [address] Dr. Jacki Jones Monocytes/100 WBC (Bld) 3.3 % Normal 1.7-12.0 [facility] Comment on above: Performed By: #### C BC #### [facility] [address] [place] [address] Dr. Jacki Jones NEUT # 5.7 103/ul Normal 1.4-6.5 [facility] Comment on above: Performed By: #### C BC #### [facility] [address] [address] [address] Jacki Jones Neutrophils/100 WBC (Bld) 62.4 % Normal 43.0-75.0 [facility] Comment on above: Performed By: #### C BC #### [facility] [address] [place] [address] Dr. Jacki Jones Platelet mean volume (Bld) [Entitic vol] 10.4 fL Normal 9.5-13.5 [facility] Comment on above: Performed By: #### C BC #### [facility] [address] [place] [address] Dr. Jacki Jones PLT 262 103/ul Normal 150-450 [facility] Comment on above: Performed By: #### C BC #### [facility] [address] [place] [address] Dr. Jacki Jones RBC 4.60 106/ul Normal 4.20-5.40 [facility] Comment on above: Performed By: #### C BC #### [facility] [address] [place] [address] Dr. Jacki Jones WBC 9.1 103/ul Normal 4.0-11.0 [facility] Comment on above: Performed By: #### C BC #### [facility] [address] [place] [address] Dr. Jacki Jones FERRITINon 07-07-2022 Ferritin [Mass/Vol] 34.0 ng/mL Normal 8.0-252.0 [facility] Comment on above: Performed By: #### L IPID, CMP #### [facility] [address] [place] [address] Dr. Jacki Jones IRON AND TIBCon 07-07-2022 % SATURATION 15.8 % Normal [facility] Comment on above: Performed By: #### L IPID, CMP #### [facility] [address] [place] [address] Dr. Jacki Jones Iron [Mass/Vol] 48.0 ug/dL Critically low 50.0-170.0 [facility] Comment on above: Performed By: #### L IPID, CMP #### [facility] [address] [address] [address] Jacki Jones TIBC DIRECT 303.0 ug/dL Normal 250.0-450.0 [facility] Comment on above: Performed By: #### L IPID, CMP #### [facility] [address] [address] [address] Jacki Jones PROF 14(COMP METB)on 023 Albumin [Mass/Vol] 3.3 g/dL Critically low 3.4-5.0 [facility] Comment on above: Performed By: #### L IPID, CMP #### [facility] [address] [address] [address] Jacki Jones Albumin/Globulin [Mass ratio] 0.9 {ratio} Normal [facility] Comment on above: Performed By: #### L IPID, CMP #### [facility] [address] [address] [address] Jacki Jones ALP [Catalytic activity/Vol] 119 U/L Critically high 46-116 [facility] Comment on above: Performed By: #### L IPID, CMP #### [facility] [address] [address] [address] Jacki Jones ALT [Catalytic activity/Vol] 29 U/L Normal 14-59 [facility] Comment on above: Performed By: #### L IPID, CMP #### [facility] [address] [address] [address] Jacki Jones Anion gap [Moles/Vol] 12.7 mmol/L Normal [facility] Comment on above: Performed By: #### L IPID, CMP #### [facility] [address] [address] [address] Jacki Jones AST [Catalytic activity/Vol] 19 U/L Normal 15-37 [facility] Comment on above: Performed By: #### L IPID, CMP #### [facility] [address] [address] [address] Jacki Jones Bilirubin [Mass/Vol] 0.2 mg/dL Normal 0.2-1.0 [facility] Comment on above: Performed By: #### L IPID, CMP #### [facility] [address] [place] [address] Dr. Jacki Jones Calcium [Mass/Vol] 8.5 mg/dL Normal 8.5-10.1 [facility] Comment on above: Performed By: #### L IPID, CMP #### [facility] [address] [place] [address] Dr. Jacki Jones Chloride [Moles/Vol] 105 mmol/L Normal 98-107 [facility] Comment on above: Performed By: #### L IPID, CMP #### [facility] [address] [place] [address] Dr. Jacki Jones CO2 [Moles/Vol] 29.5 mmol/L Normal 21.0-32.0 [facility] Comment on above: Performed By: #### L IPID, CMP #### [facility] [address] [place] [address] Dr. Jacki Jones Creatinine [Mass/Vol] 1.08 mg/dL Critically high 0.55-1.02 [facility] Comment on above: Performed By: #### L IPID, CMP #### [facility] [address] [place] [address] Dr. Jacki Jones EGFR-AF ANGOLAN >60 Normal >=60 [facility] Comment on above: Performed By: #### L IPID, CMP #### [facility] [address] [place] [address] Dr. Jacki Jones EGFR-NON AF ANGOLAN 53 mL/min/1.73m2 Critically low >=60 [facility] Comment on above: Performed By: #### L IPID, CMP #### [facility] [address] [place] [address] Dr. Jacki Jones Globulin (S) [Mass/Vol] 3.8 g/dL Normal [facility] Comment on above: Performed By: #### L IPID, CMP #### [facility] [address] [place] [address] Dr. Jacki Jones Glucose [Mass/Vol] 121 mg/dL Critically high 74-106 [facility] Comment on above: Performed By: #### L IPID, CMP #### [facility] [address] [place] [address] Dr. Jacki Jones Potassium [Moles/Vol] 4.2 mmol/L Normal 3.5-5.1 [facility] Comment on above: Performed By: #### L IPID, CMP #### [facility] [address] [place] [address] Dr. Jacki Jones Protein [Mass/Vol] 7.1 g/dL Normal 6.4-8.2 [facility] Comment on above: Performed By: #### L IPID, CMP #### [facility] [address] [place] [address] Dr. Jacki Jones Sodium [Moles/Vol] 143 mmol/L Normal 136-145 [facility] Comment on above: Performed By: #### L IPID, CMP #### [facility] [address] [place] [address] Dr. Jacki Jones Urea nitrogen [Mass/Vol] 11.0 mg/dL Normal 7.0-18.0 [facility] Comment on above: Performed By: #### L IPID, CMP #### [facility] [address] [place] [address] Dr. Jacki Jones Urea nitrogen/Creatini ne [Mass ratio] 10.2 mg/mg Normal [facility] Comment on above: Performed By: #### L IPID, CMP #### [facility] [address] [place] [address] Dr. Jacki Jones TSHon 07-07-2022 TSH 3.137 uIU/mL Normal 0.358-3.740 [facility] Comment on above: Performed By: #### L IPID, CMP #### [facility] [address] [place] [address] Dr. Jacki Jones VITAMIN B12on 07-07-2022 Cobalamin (Vitamin B12) [Mass/Vol] 434.0 pg/mL Normal 193.0-986.0 [facility] Comment on above: Performed By: #### L IPID, CMP #### [facility] [address] [address] [address] Jacki Jones LIPID PROFILEon 12-08-2021 CHOL-HDL RATIO NORM SEE BELOW Normal [facility] Comment on above: Result Comment: 3.3 - 4.4 LOW RISK 4.4 - 7.1 AVERAGE RISK 7.1 - 11.0 MODERATE RISK >11.0 HIGH RISK Performed By: #### L IPID, CMP #### [facility] [address] [address] [address] Jacki Jones Cholesterol [Mass/Vol] 170 mg/dL Normal <=200 [facility] Comment on above: Performed By: #### L IPID, CMP #### [facility] [address] [address] [address] Jacki Jones Cholesterol in HDL [Mass/Vol] 60 mg/dL Normal 40-60 [facility] Comment on above: Performed By: #### L IPID, CMP #### [facility] [address] [address] [address] Jacki Jones Cholesterol in LDL [Mass/Vol] 99.0 mg/dL Normal [facility] Comment on above: Performed By: #### L IPID, CMP #### [facility] [address] [address] [address] Jacki Jones Cholesterol.total /Cholesterol in HDL [Mass ratio] 2.8 {ratio} Normal [facility] Comment on above: Performed By: #### L IPID, CMP #### [facility] [address] [address] [address] Jacki Jones HDL NORMAL > or = 60 mg/dl - LO W CARDIOVASCULAR RISK <40 mg/dl - HIGH CARDIOVASCULAR RISK Normal [facility] Comment on above: Performed By: #### L IPID, CMP #### [facility] [address] [address] [address] Jacki Jones LDL CALC NORMAL SEE BELOW Normal [facility] Comment on above: Result Comment: <100 mg/dl OPTIMAL 100 - 129 mg/dl NEAR OR ABOVE OPTIMAL 130 - 159 mg/dl BORDERLINE HIGH 160 - 189 mg/dl HIGH >190 mg/dl VERY HIGH Performed By: #### L IPID, CMP #### [facility] [address] [place] [address] Dr. Jacki Jones Triglyceride [Mass/Vol] 55 mg/dL Normal <=150 [facility] Comment on above: Performed By: #### L IPID, CMP #### [facility] [address] [place] [address] Dr. Jacki Jones VLDL CALC 11.0 mg/dL Normal [facility] Comment on above: Performed By: #### L IPID, CMP #### [facility] [address] [place] [address] Dr. Jacki Jones PROF 14(COMP METB)on 022 Albumin [Mass/Vol] 3.8 g/dL Normal 3.4-5.0 [facility] Comment on above: Performed By: #### L IPID, CMP #### [facility] [address] [place] [address] Dr. Jacki Jones Albumin/Globulin [Mass ratio] 1.2 {ratio} Normal [facility] Comment on above: Performed By: #### L IPID, CMP #### [facility] [address] [place] [address] Dr. Jacki Jones ALP [Catalytic activity/Vol] 82 U/L Normal 46-116 [facility] Comment on above: Performed By: #### L IPID, CMP #### [facility] [address] [place] [address] Dr. Jacki Jones ALT [Catalytic activity/Vol] 18 U/L Normal 14-59 [facility] Comment on above: Performed By: #### L IPID, CMP #### [facility] [address] [place] [address] Dr. Jacki Jones Anion gap [Moles/Vol] 12.0 mmol/L Normal [facility] Comment on above: Performed By: #### L IPID, CMP #### [facility] [address] [place] [address] Dr. Jacki Jones AST [Catalytic activity/Vol] 12 U/L Critically low 15-37 [facility] [place] [facility] Comment on above: Performed By: #### L IPID, CMP #### [facility] [address] [address] [address] Jacki Jones Bilirubin [Mass/Vol] 0.5 mg/dL Normal 0.2-1.0 [facility] Comment on above: Performed By: #### L IPID, CMP #### [facility] [address] [place] [address] Dr. Jacki Jones Calcium [Mass/Vol] 8.7 mg/dL Normal 8.5-10.1 [facility] Comment on above: Performed By: #### L IPID, CMP #### [facility] [address] [place] [address] Dr. Jacki Jones Chloride [Moles/Vol] 107 mmol/L Normal 98-107 [facility] Comment on above: Performed By: #### L IPID, CMP #### [facility] [address] [place] [address] Dr. Jacki Jones CO2 [Moles/Vol] 27.2 mmol/L Normal 21.0-32.0 [facility] Comment on above: Performed By: #### L IPID, CMP #### [facility] [address] [place] [address] Dr. Jacki Jones Creatinine [Mass/Vol] 1.03 mg/dL Critically high 0.55-1.02 [facility] Comment on above: Performed By: #### L IPID, CMP #### [facility] [address] [place] [address] Dr. Jacki Jones EGFR-AF ANGOLAN >60 Normal >=60 [facility] Comment on above: Performed By: #### L IPID, CMP #### [facility] [address] [place] [address] Dr. Jacki Jones EGFR-NON AF ANGOLAN 56 mL/min/1.73m2 Critically low >=60 [facility] Comment on above: Performed By: #### L IPID, CMP #### [facility] [address] [place] [address] Dr. Jacki Jones Globulin (S) [Mass/Vol] 3.1 g/dL Normal [facility] Comment on above: Performed By: #### L IPID, CMP #### [facility] [address] [place] [address] Dr. Jacki Jones Glucose [Mass/Vol] 95 mg/dL Normal 74-106 [facility] Comment on above: Performed By: #### L IPID, CMP #### [facility] [address] [place] [address] Dr. Jacki Jones Potassium [Moles/Vol] 4.2 mmol/L Normal 3.5-5.1 [facility] Comment on above: Performed By: #### L IPID, CMP #### [facility] [address] [place] [address] Dr. Jacki Jones Protein [Mass/Vol] 6.9 g/dL Normal 6.4-8.2 [facility] Comment on above: Performed By: #### L IPID, CMP #### [facility] [address] [place] [address] Dr. Jacki Jones Sodium [Moles/Vol] 142 mmol/L Normal 136-145 [facility] Comment on above: Performed By: #### L IPID, CMP #### [facility] [address] [place] [address] Dr. Jacki Jones Urea nitrogen [Mass/Vol] 16.0 mg/dL Normal 7.0-18.0 [facility] Comment on above: Performed By: #### L IPID, CMP #### [facility] [address] [place] [address] Dr. Jacki Jones Urea nitrogen/Creatini ne [Mass ratio] 15.5 mg/mg Normal [facility] Comment on above: Performed By: #### L IPID, CMP #### [facility] [address] [place] [address] Dr. Jacki Jones COVID Quick Testingon 2021 Result Positive [employer] Other XR KNEE HIRO AP STNDon 2021 XR KNEE HIRO AP STND EXAMINATION: XR KNEE HIRO 3 V, XR KNEE HIRO AP STND HISTORY: Bilateral knee pain COMPARISON: No relevant comparison available. FINDINGS: RIGHT FINDINGS: BONES: No acute fracture or dislocation. Mild to moderate tricompartmental osteoarthropathy with marginal osteophyte formation. Moderate narrowing of medial joint space SOFT TISSUES: Negative. No visible soft tissue swelling. OTHER: Negative. LEFT FINDINGS: BONES: No acute fracture or dislocation. Mild to moderate tricompartmental osteoarthropathy with marginal osteophyte formation. Moderate narrowing of medial joint space SOFT TISSUES: Negative. No visible soft tissue swelling. OTHER: Negative. IMPRESSION: RIGHT CONCLUSION: Mild to moderate osteoarthritis LEFT CONCLUSION: Mild to moderate osteoarthritis Electronically authenticated by: MARYAM HUGHES Date: 2021-11-11 17:57 Normal [facility] XR KUB 1 VIEWon 11-11-2021 XR KUB 1 VIEW EXAMINATION: XR KUB 1 VIEW HISTORY: Kidney stone COMPARISON: 08/15/2020 FINDINGS: KIDNEY/URETER - RIGHT: No visible renal or ureteral calcifications. KIDNEY/URETER - LEFT: Nephrolithiasis PELVIS: No visible ureteral calcifications. Any visible calcifications favor phleboliths. BOWEL: No abnormal dilation or deviation. BONES: No acute abnormality. OTHER: Negative. No abnormal gaseous collections. IMPRESSION: Stable left nephrolithiasis Electronically authenticated by: MARYAM HUGHES Date: 2021-11-11 18:15 Normal [facility] Covid-19 PCR ([facility])on 10-05 SARS-CoV-2 (COVID-19) RNA LENNY+probe Ql (Unsp spec) Not detected Normal NOT DETECTED [facility] Comment on above: Result Comment: When diagnostic testing is negative, the possibility of a false negative should be considered in the context of a patient's recent exposures and the presence of clinical signs and symptoms consistent with SARS-CoV-2. This test is not yet approved or cleared by the [place] FDA. When there are no FDA-approved or cleared tests available, and other criteria are met, FDA can make tests available under an emergency access mechanism called an Emergency Use Authorization (EUA). The EUA for this test is supported by the [place] of Health and Human Service's declaration that circumstances exist to justify the emergency use of in vitro diagnostics for the detection and/or diagnosis of the virus that causes COVID-19. This EUA will remain in effect for the duration of the COVID-19 declaration justifying emergency of IVDs, unless it is terminated or revoked by the FDA (after which the test may no longer be used). Performed By: #### C VDTBH #### [facility] [address] [address] [address] Jacki Jones GROUP A STREP CULTUREon 10-05 S. pyogenes Ag Ql (Unsp spec) Culture Observations: NEGATIVE FOR GROUP A STREPTOCOCCUS. Normal [facility] Comment on above: Performed By: #### G RASTCX, SSCRN #### [facility] [address] [address] [address] Jacki Jones STREPT SCREENon 10-23-2021 STREP SCREEN A Negative Normal NEGATIVE [facility] Comment on above: Performed By: #### G RASTCX, SSCRN #### [facility] [address] [place] [address] Dr. Jacki Jones SARS-CoV-2 (COVID-19) RNA NA A+probe Ql (Resp)on 10-07-2021 SARS-CoV-2 (COVID-19) RNA LENNY+probe Ql (Unsp spec) Negative [employer] Other US CAROTID ART BILon 022 US CAROTID ART HIRO EXAMINATION: US CAROTID ART HIRO HISTORY: Cardiovascular symptoms , bilateral bruit COMPARISON: No relevant comparison available. TECHNIQUE: Duplex Doppler ultrasound analysis of carotid and vertebral arteries. . Bilateral carotid arterial duplex examination was performed using B-mode, color flow and spectral analysis. Carotid stenosis is reported according to validated velocity parameters, similar to NASCET criteria. FINDINGS: RIGHT CAROTID ARTERY: No visible stenosis or significant plaque. RIGHT VERTEBRAL: Antegrade flow. Subclavian: PSV: 132.2 cm/s EDV: 9.1 cm/s CCA: Prox: PSV: 130.5 cm/s EDV: 26.0 cm/s Mid: PSV: 105.6 cm/s EDV: 28.8 cm/s Distal: PSV: 94.6 cm/s EDV: 31.7 cm/s BULB: PSV: 78.5 cm/s EDV: 26.8 cm/s ICA: Prox: PSV: 93.0 cm/s EDV: 31.7 cm/s Mid: PSV: 94.6 cm/s EDV: 44.6 cm/s Distal: PSV: 102.7 cm/s EDV: 39.7 cm/s ECA: PSV: 85.3 cm/s EDV: 10.6 cm/s VERTEBRAL: PSV: 64.4 cm/s EDV: 24.8 cm/s ICA/CCA ratio: PSV: 1.1 EDV: 1.3 LEFT CAROTID ARTERY: No visible stenosis or significant plaque. LEFT VERTEBRAL: Antegrade flow. Subclavian: PSV: 122.4 cm/s EDV: 0.0 cm/s CCA: Prox: PSV: 104.9 cm/s EDV: 16.2 cm/s Mid: PSV: 106.2 cm/s EDV: 21.5 cm/s Distal: PSV: 96.7 cm/s EDV: 32.1 cm/s BULB: PSV: 65.9 cm/s EDV: 19.3 cm/s ICA: Prox: PSV: 68.5 cm/s EDV: 24.5 cm/s Mid: PSV: 78.8 cm/s EDV: 23.2 cm/s Distal: PSV: 93.0 cm/s EDV: 43.8 cm/s ECA: PSV: 74.9 cm/s EDV: 19.3 cm/s VERTEBRAL: PSV: 67.1 cm/s EDV: 24.4 cm/s ICA/CCA ratio: PSV: 1.0 EDV: 1.4 IMPRESSION: 1. 0-49% flow stenosis within the right left carotid arteries. 2. 7 mm hypoechoic nodule incidentally noted within right thyroid lobe. Consider ultrasound evaluation of thyroid gland. Electronically authenticated by: MORENO APARICIO Date: 2021-07-23 19:11 Normal [facility] COVID Quick Testingon 2020 Result Negative [employer] Other COVID Quick Testingon 2020 Result Negative [employer] Other Ophthalmic Eye [place] 2020 Ophthalmic Eye Exam DOCUMENT REVIEWED BY: Khoi Roblero MD DOCUMENT SIGNED ELECTRONICALLY BY Khoi Roblero MD ON 06/27/2020 10:25:34 AM [place] [facility] [place], [address] [phone] THIS DOCUMENT WAS CREATED ON: 06/27/2020 10:25:25 AM BY: Khoi Pulido performed [id number] Exam Date: Saturday, June 27, 2020 PATIENT NAME: GAIL REINOSO DATE: 1970 AGE: 49 GENDER: Female RACE: History Chief Complaint/Reason For Visit: Problem-This 49 year old woman with history of HTN, HLD, GERD, IBS, anxiety, obesity, headaches, Chiari I malformation, smoker and presents for evaluation of double vision and pseudopapilledema.James l get double vision daily. Images are side by side., Context/Onset-gradual , Location-both eyes, Duration-6 years, Timing-intermittent, She has lost 55lbs in the last year -- Attending history below -- This 49 year old woman with history of HTN, HLD, GERD, IBS, anxiety, obesity, headaches, Chiari I malformation, smoker and presents for evaluation of double vision and pseudopapilledema. She reports intermittent diplopia for 11-12 years worsening over time. The two images are horizontal. She has not checked whether monocular. She thinks it lasts minutes and happens a few days each day. She reports lumbar puncture in the past. She had some test at [facility] for intracranial pressure monitoring. She was seen by neurology in the past, but not in 9 years. She also had head imaging in the past, but not for years. She reports headaches almost daily for which she takes topiramate and gabapentin prescribed by her PMD. The headaches have been getting worse. She has dizziness that she characterizes as lightheadedness / presyncope. She was last seen on 05/26/[address] Lamonte Medrano (optometry, [facility]) when she noted experiencing double vision every day. 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 HISTORY OF PRESENT ILLNESS: PROBLEM: This 49 year old woman with history of HTN, HLD, GERD, IBS, anxiety, obesity, headaches, Chiari I malformation, smoker and presents for evaluation of double vision and pseudopapilledema.James cheek get double vision daily. Images are side by side. CONTEXT/ONSET: gradual LOCATION: both eyes DURATION: 6 years TIMING: intermittent HPI was performed by Dr. Khoi Roblero MD and scribed by Maria Antonia Roblero MD PAST MEDICAL HISTORY: ILLNESSES: History of Migraines; History of anxiety; History of depression; History of herpes genitalis; History of hypertension; SURGERIES: History of Hysterectomy; History of Appendectomy; History of Gallbladder surgery; SOCIAL HISTORY: SMOKING: Smoker (305.1 F17.200) CURRENT MEDICATIONS: BuSpar 15 MG TABS (No longer available) - Tablet, [Reported] Gabapentin 300 MG Oral Capsule - Capsule, [Reported] Metoprolol Tartrate 100 MG Oral Tablet - Tablet, [Reported] Omeprazole 40 MG Oral Capsule Delayed Release - Capsule Delayed Release, [Reported] Topiramate 100 MG Oral Tablet - Tablet, [Reported] valACYclovir HCl - 1 GM Oral Tablet - Tablet, [Reported] Venlafaxine HCl ER 150 MG Oral Tablet Extended Release 24 Hour - Tablet Extended Release 24 Hour, [Reported] ALLERGIES: Phenergan REVIEW OF SYSTEMS: All other Review Of Systems negative Exam ORIENTATION, MOOD AND AFFECT: Alert AND oriented x3 RIGHT EYE LEFT EYE UNCORRECTED VA N/A N/A WEARING +1.75 -1.25 x 115 add +2.25 +1.75 -1.00 x 085 add +2.25 CORRECTED VA 20/20-3 20/20 PRESSURE METHOD: Goldmann Goldmann PRESSURES: 19 19 DATE-TIME: 09:21 AM 09:21 AM HOT WALKER: tal longx1 CONFRONTATION VF Full to count fingers, see Full to count fingers, see HVF HVF EXTERNAL EYE EXAM: LID: Good Position Good Position PUPIL: 5 to 4 mm, no RAPD 5 to 4 mm, no RAPD ADNEXA: Normal Normal MUSCLE BALANCE: mbex OCULAR MOTILITY: Full STEREO ONE-THIRD METER: -Fly 0/3 3/9 COLOR VA ISHIHARA OUT OF 11 OD: 10 COLOR VA ISHIHARA OUT OF 11 OS: 11 ANTERIOR SEGMENT EXAM: TEARFILM: Good Good CONJUNCTIVA: White and quiet White and quiet CORNEA: inferior PEE inferior PEE ANTERIOR CHAMBER: Deep and quiet Deep and quiet IRIS: Round and reactive Round and reactive LENS: Clear Clear ANTERIOR VITREOUS: Clear Clear FUNDUS EXAM: DILATION and NUMBING DROPS: Mydriacyl 1% AND Damian 2 1/2% OU 06/27/2020 10:08:38 AM CUP TO DISC: .2 .2 OPTIC DISC: [place] and sharp, trace [place] and sharp temporal thinning VITREOUS: Clear Clear MACULA: Normal reflex Normal reflex VESSELS: Normal Normal PERIPHERY: No tears, breaks, or holes No tears, breaks, or holes Impression 1 H53.2 Diplopia-New 2 G93.5 Chiari I malformation-New 3 H04.123 Dry eyes, bilateral-New Discussion Letter prepared by:Khoi Roblero MD Plan TODAY (OU) - OCT RNFL By:Khoi Roblero MD TODAY (OU) - Visual Field 24-2 Full B (more content not included)... Normal [facility] Ophthalmic Letteron 06-28-19 Ophthalmic Letter DOCUMENT REVIEWED BY : Khoi Roblero MD DOCUMENT SIGNED ELECTRONICALLY BY Khoi Roblero MD ON 06/27/2020 10:24:39 AM 06/27/2020 Patient Name: GAIL REINOSO Birthdate: 1970 Gender: female Dear Dr. Lamonte Medrano I am writing to share my findings regarding our mutual patient GAIL REINOSO from her visit with me 06/27/2020. The full visit note with complete findings follows on subsequent pages. History of Present Illness Problem-This 49 year old woman with history of HTN, HLD, GERD, IBS, anxiety, obesity, headaches, Chiari I malformation, smoker and presents for evaluation of double vision and pseudopapilledema.James l get double vision daily. Images are side by side., Context/Onset-gradual , Location-both eyes, Duration-6 years, Timing-intermittent, She has lost 55lbs in the last year -- Attending history below -- This 49 year old woman with history of HTN, HLD, GERD, IBS, anxiety, obesity, headaches, Chiari I malformation, smoker and presents for evaluation of double vision and pseudopapilledema. She reports intermittent diplopia for 11-12 years worsening over time. The two images are horizontal. She has not checked whether monocular. She thinks it lasts minutes and happens a few days each day. She reports lumbar puncture in the past. She had some test at [facility] for intracranial pressure monitoring. She was seen by neurology in the past, but not in 9 years. She also had head imaging in the past, but not for years. She reports headaches almost daily for which she takes topiramate and gabapentin prescribed by her PMD. The headaches have been getting worse. She has dizziness that she characterizes as lightheadedness / presyncope. She was last seen on 05/26/[address] Lamonte Medrano (optometry, [facility]) when she noted experiencing double vision every day. 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 Diagnoses 01 368.2 Diplopia 02 348.4 Chiari I malformation 03 375.15 Dry eyes, bilateral Impression AND Plan 04/25/2020 Weight 110 kg; Height 173 cm; BMI 36.75 04/26/2017 frT4 0.89; TSH 1.870; frT3 3.90; HIV negative 06/27/2020 OCT RNFL OD 79 with T thinning AND OS 112. 06/27/2020 HVF 24-2 OD fovea 32, scatter MD -3.88 AND OS fovea 33, wnl MD -1.15. This 49 year old woman with history of HTN, HLD, GERD, IBS, anxiety, obesity, headaches, Chiari I malformation, smoker and presents for evaluation of double vision and pseudopapilledema. She has mild esotropia in left gaze potentially consistent with left CN palsy. She could have monocular or binocular diplopia. The broad localization possibilities for binocular diplopia include the brain, particularly the beckie and midbrain, the cranial nerves, the neuromuscular junction, and the extraocular muscles. Related etiologies include central stroke, mass and inflammatory/demyelin ating diseases, compressive, inflammatory and ischemic lesions, myasthenia gravis and related conditions, and thyroid eye disease and other myopathies. Chiari could be a contributor. However, I do not see any evidence of visual field loss or optic disc edema that could be associated with high intracranial pressure. Plan Trial of artificial tears. Keep a log of double vision events covering each eye individually to determine whether the double is in each individual eye or only when looking through both eyes together. Check B12, folate, thiamine, syphilis antibody, T-SPOT AND RICHARDSON. Check acetylcholine receptor binding, blocking AND modulating antibodies, thyroid peroxidase antibody, thyroid stimulating immunoglobulin, thyrotropin receptor antibody AND thyroid function testing. Check MRI brain AND orbits with contrast. Follow up in 2-3 months with stereo plates and OCT. (dilated 06/27/2020) I appreciate the opportunity to see GAIL REINOSO today and to share in her care with you. Please do not hesitate to contact me with any questions regarding this patient, nor to consult me whenever I can be of help to another of your patients with neuro-ophthalmologica l problems. Sincerely, Khoi Roblero M.D., Ph.D. Neuro-Ophthalmology Service [facility] [address] [address] Email: [email or web address] Received for:Khoi Roblero MD,PhD Jun 27 2020 10:24AM Eastern Standard Time Normal [facility] Vital Signs Date Time Vital Sign Value Performing Clinician Facility 12-24-2022 08:47-0400 Diastolic blood pressure 100 mm[Hg] DO Kerline Rajan Work Phone: [facility] 12-24-2022 08:47-0400 Heart rate 80 /min DO Kerline Rajan Work Phone: [facility] 12-24-2022 08:47-0400 Respiratory rate 16 /min DO Kerlinecesia Rajan Work Phone: [facility] 12-24-2022 08:47-0400 SaO2% (BldA) [Mass fraction] 100 % DO Kerline Rajan Work Phone: [facility] 12-24-2022 08:47-0400 Systolic blood pressure 150 mm[Hg] DO Kerline Satinder Work Phone: [facility] 12-24-2022 06:26-0400 Body height 172.72 cm DO Kerline Rajan Work Phone: [facility] 12-24-2022 06:26-0400 Body temperature 97.8 [degF] DO Kerline Rajan Work Phone: [facility] 12-24-2022 06:26-0400 Body weight 117.93 kg DO Kerline Rajan Work Phone: [facility] 11-24-2022 17:30-0400 Body height 172.72 cm Gail Jodi Other [employer] Other 11-24-2022 17:30-0400 Body mass index (BMI) [Ratio] 39.1 kg/m2 Gail Jodi Other [employer] Other 11-24-2022 17:30-0400 Body temperature 98.6 [degF] Gail Jodi Other [facility] Other 11-24-2022 17:30-0400 Body weight 116.67 kg Gail Jodi Other [employer] Other 11-24-2022 17:30-0400 Diastolic blood pressure 82 mm[Hg] Gail Jodi Other [facility] Other 11-24-2022 17:30-0400 Respiratory rate 18 /min Gail Guerreromond Other [employer] Other 11-24-2022 17:30-0400 SaO2% (BldA) [Mass fraction] 97 % Gail Jodi Other [employer] Other 11-24-2022 17:30-0400 Systolic blood pressure 139 mm[Hg] Gail Jodi Other [employer] Other 11-18-2022 15:30-0400 Body height 172.72 cm Imad Asabrandy Other [employer] Other 11-18-2022 15:30-0400 Body mass index (BMI) [Ratio] 38.78 kg/m2 Imad Asaad Other [facility] Other 11-18-2022 15:30-0400 Body weight 115.71 kg Imad Asaad Other [employer] Other 11-18-2022 15:30-0400 Diastolic blood pressure 101 mm[Hg] Imad Asaad Other [facility] Other 11-18-2022 15:30-0400 Systolic blood pressure 159 mm[Hg] Imad Asaad Other [facility] Other 11-15-2022 16:32-0400 Diastolic blood pressure 90 mm[Hg] Skyler MORROW [facility] 11-15-2022 16:32-0400 Mean blood pressure 109 mm[Hg] Skyler MORROW [facility] 11-15-2022 16:32-0400 Systolic blood pressure 146 mm[Hg] Skyler MORROW [facility] 11-15-2022 16:23-0400 Diastolic blood pressure 92 mm[Hg] Skyler MORROW [facility] 11-15-2022 16:23-0400 Mean blood pressure 110 mm[Hg] Skyler MORROW [facility] 11-15-2022 16:23-0400 Systolic blood pressure 146 mm[Hg] Skyler MORROW [facility] 11-15-2022 16:14-0400 Blood Pressure Location Skyler MORROW [facility] 11-15-2022 16:14-0400 Diastolic blood pressure 100 mm[Hg] Skyler MORROW [facility] 11-15-2022 16:14-0400 Heart rate 83 /min Skyler MORROW [facility] 11-15-2022 16:14-0400 Systolic blood pressure 150 mm[Hg] Skyler MORROW [facility] 10-29-2022 16:05-0400 Body height 172.72 cm Nora Jackson Other [employer] Other 10-29-2022 16:05-0400 Body mass index (BMI) [Ratio] 39.53 kg/m2 Nora Jackson Other [employer] Other 10-29-2022 16:05-0400 Body temperature 98.3 [degF] Nora Jackson Other [employer] Other 10-29-2022 16:05-0400 Body weight 117.94 kg Nora Jackson Other [employer] Other 10-29-2022 16:05-0400 Diastolic blood pressure 91 mm[Hg] Nora Jackson Other [employer] Other 10-29-2022 16:05-0400 Respiratory rate 18 /min Nora Jackson Other [employer] Other 10-29-2022 16:05-0400 SaO2% (BldA) [Mass fraction] 97 % Nora Jackson Other [employer] Other 10-29-2022 16:05-0400 Systolic blood pressure 134 mm[Hg] Nora Jackson Other [employer] Other 10-21-2022 16:00-0400 Body height 172.72 cm Kerline Rajan Other [employer] Other 10-21-2022 16:00-0400 Body mass index (BMI) [Ratio] 39.59 kg/m2 Kerline Rajan Other [employer] Other 10-21-2022 16:00-0400 Body weight 118.12 kg Kerline Rajan Other [employer] Other 10-21-2022 16:00-0400 Diastolic blood pressure 88 mm[Hg] Kerline Rajan Other [employer] Other 10-21-2022 16:00-0400 Respiratory rate 18 /min Kerline Rajan Other [employer] Other 10-21-2022 16:00-0400 SaO2% (BldA) [Mass fraction] 98 % Kerline Rajan Other [employer] Other 10-21-2022 16:00-0400 Systolic blood pressure 138 mm[Hg] Kerline Rajan Other [employer] Other 08-26-2022 15:30-0400 Body height 172.72 cm Kerline Rajan Other [employer] Other 08-26-2022 15:30-0400 Body mass index (BMI) [Ratio] 39.56 kg/m2 Kerline Rajan Other [employer] Other 08-26-2022 15:30-0400 Body weight 118.03 kg Kerline Satinder Other [employer] Other 08-26-2022 15:30-0400 Diastolic blood pressure 86 mm[Hg] Kerline Rajan Other [employer] Other 08-26-2022 15:30-0400 Respiratory rate 18 /min Kerline Satinder Other [employer] Other 08-26-2022 15:30-0400 SaO2% (BldA) [Mass fraction] 98 % Kerline Satinder Other [employer] Other 08-26-2022 15:30-0400 Systolic blood pressure 138 mm[Hg] Kerline Rajan Other [employer] Other 04-29-2022 15:45-0500 Body height 172.72 cm Dontae Maharaj Other [employer] Other 04-29-2022 15:45-0500 Body mass index (BMI) [Ratio] 37.84 kg/m2 Dontae Maharaj Other [employer] Other 04-29-2022 15:45-0500 Body weight 112.9 kg Dontae Maharaj Other [employer] Other 04-29-2022 15:45-0500 Diastolic blood pressure 84 mm[Hg] Dontae Maharaj Other [employer] Other 04-29-2022 15:45-0500 Respiratory rate 18 /min Dontae Maharaj Other [employer] Other 04-29-2022 15:45-0500 SaO2% (BldA) [Mass fraction] 98 % Dontae Maharaj Other [employer] Other 04-29-2022 15:45-0500 Systolic blood pressure 136 mm[Hg] Dontae Binks Other [employer] Other 04-07-2022 16:30-0500 Body height 172.72 cm Dontae Beckks Other [employer] Other 04-07-2022 16:30-0500 Body mass index (BMI) [Ratio] 37.23 kg/m2 Dontae Beckks Other [employer] Other 04-07-2022 16:30-0500 Body weight 111.09 kg Dontae Maharaj Other [employer] Other 04-07-2022 16:30-0500 Diastolic blood pressure 78 mm[Hg] Dontae Maharaj Other [employer] Other 04-07-2022 16:30-0500 Respiratory rate 18 /min Dontae Kiranks Other [employer] Other 04-07-2022 16:30-0500 SaO2% (BldA) [Mass fraction] 98 % Dontae Binks Other [employer] Other 04-07-2022 16:30-0500 Systolic blood pressure 122 mm[Hg] Dontae Binks Other [employer] Other 11-24-2021 17:25-0400 Body height 172.72 cm Gail Zapata Other [employer] Other 11-24-2021 17:25-0400 Body mass index (BMI) [Ratio] 33.45 kg/m2 Gail Zapata Other [employer] Other 11-24-2021 17:25-0400 Body temperature 98.3 [degF] Gail Zapata Other [employer] Other 11-24-2021 17:25-0400 Body weight 99.79 kg Gail Zapata Other [employer] Other 11-24-2021 17:25-0400 Respiratory rate 18 /min Gail Zapata Other [employer] Other 11-24-2021 17:25-0400 SaO2% (BldA) [Mass fraction] 97 % Gail Zapata Other [employer] Other 11-11-2021 15:38-0400 Blood Pressure Location VALERIE HARPER [facility] 11-11-2021 15:38-0400 Diastolic blood pressure 89 mm[Hg] VALERIE HARPER [facility] 11-11-2021 15:38-0400 Heart rate 81 /min VALERIE HARPER [facility] 11-11-2021 15:38-0400 Respiratory rate 16 /min VALERIE HARPER [facility] 11-11-2021 15:38-0400 Systolic blood pressure 132 mm[Hg] VALERIE HARPER [facility] 10-07-2021 14:40-0400 Body height 172.72 cm Gail Zapata Other [employer] Other 10-07-2021 14:40-0400 Body mass index (BMI) [Ratio] 33.6 kg/m2 Gail Zapata Other [employer] Other 10-07-2021 14:40-0400 Body temperature 99.1 [degF] Gail Zapata Other [employer] Other 10-07-2021 14:40-0400 Body weight 100.25 kg Gail Zapata Other [employer] Other 10-07-2021 14:40-0400 Respiratory rate 18 /min Gail Zpaata Other [employer] Other 10-07-2021 14:40-0400 SaO2% (BldA) [Mass fraction] 97 % Gail Zapata Other [employer] Other 10-05-2021 15:45-0400 Body height 172.72 cm Kerline Rajan Other [employer] Other 10-05-2021 15:45-0400 Body mass index (BMI) [Ratio] 33.36 kg/m2 Kerline Rajan Other [employer] Other 10-05-2021 15:45-0400 Body weight 99.52 kg Kerline Rajan Other [employer] Other 10-05-2021 15:45-0400 Diastolic blood pressure 78 mm[Hg] Kerline Donmer Other [employer] Other 10-05-2021 15:45-0400 Respiratory rate 18 /min Kerline Rajan Other [employer] Other 10-05-2021 15:45-0400 SaO2% (BldA) [Mass fraction] 97 % Kerline Rajan Other [employer] Other 10-05-2021 15:45-0400 Systolic blood pressure 130 mm[Hg] Kerline Rajan Other [employer] Other 01-23-2021 19:10-0500 Body height 172.72 cm Gail Zapata Other [employer] Other 01-23-2021 19:10-0500 Body temperature 96.3 [degF] Gail Zapata Other [employer] Other 01-23-2021 19:10-0500 Respiratory rate 18 /min Gail Zapata Other [employer] Other 01-23-2021 19:10-0500 SaO2% (BldA) [Mass fraction] 97 % Gail Zapata Other [employer] Other 12-09-2020 14:15-0400 Body height 172.72 cm Yanet Loja Other [employer] Other 12-09-2020 14:15-0400 Body mass index (BMI) [Ratio] 36.18 kg/m2 Yanet Loja Other [employer] Other 12-09-2020 14:15-0400 Body temperature 97.5 [degF] Yanet Loja Other [employer] Other 12-09-2020 14:15-0400 Body weight 107.96 kg Yanet Loja Other [employer] Other 12-09-2020 14:15-0400 Respiratory rate 18 /min Yanet Loja Other [employer] Other 12-09-2020 14:15-0400 SaO2% (BldA) [Mass fraction] 98 % Yanet Loja Other [employer] Other Encounters Encounter Date Encounter Type Care Provider Facility Start: 11-21-2023 ambulatory KERLINE RAJAN Facility :[facility] Start: 01-10-2023 End: 01-10-2023 ambulatory Kerline Rajan Other [employer] Other Start: 01-10-2023 Telephone encounter Kerline Salcido [facility] Start: 12-24-2022 End: 12-24-2022 ambulatory Kerline Rajan Facility:[facility] Start: 12-24-2022 End: 12-24-2022 Admission to same day surgery center DO Kerline Rajan Work Phone: [facility] Work Phone: Start: 12-24-2022 End: 12-24-2022 ambulatory DO Kerline Antwon Satinder Work Phone: [facility] Work Phone: Start: 12-16-2022 End: 12-16-2022 ambulatory Kerline Rajan Other [employer] Other Start: 12-16-2022 Telephone encounter Kerline Salcido [facility] [address] Start: 11-25-2022 End: 11-25-2022 ambulatory Kerline Rajan Other [employer] Other Start: 11-25-2022 Telephone encounter Kerline Salcido [facility] Start: 11-24-2022 End: 11-24-2022 ambulatory Gail Zapata Other [employer] Other Start: 11-24-2022 Office outpatient vi sit 15 minutes Gail Jodi [facility] Start: 11-18-2022 End: 11-18-2022 ambulatory Imad Asaad Other [employer] Other Start: 11-18-2022 Office outpatient ne w 45 minutes Imad Asaad [facility] Start: 11-15-2022 End: 11-16-2022 ambulatory KERLINE RAJAN Facility:[facility] Start: 11-15-2022 End: 11-15-2022 Patient encounter procedure Skyler MORROW [facility] Start: 10-29-2022 End: 10-29-2022 ambulatory Nora Jackson Other [employer] Other Start: 10-29-2022 Office outpatient vi sit 15 minutes Nora Jackson [facility] Start: 10-29-2022 Telephone encounter Kerline Salcido [facility] Start: 10-25-2022 End: 10-25-2022 ambulatory Kerline Rajan Other [employer] Other Start: 10-25-2022 Telephone encounter Kerline Salcido [facility] Start: 10-21-2022 End: 10-21-2022 ambulatory Kerlinecesia Rajan Other [employer] Other Start: 10-21-2022 Encounter for genera l adult medical examination without abnormal findings Kerline Rajan [facility] Start: 10-21-2022 Periodic preventive med est patient 40-64yrs Kerline Rajan [facility] Start: 08-31-2022 End: 08-31-2022 ambulatory Imad Garland Other [employer] Other Start: 08-31-2022 Telephone encounter Imad Asaad [facility] Start: 08-30-2022 End: 08-30-2022 ambulatory Kerline Rajan Other [employer] Other Start: 08-30-2022 Telephone encounter Kerline Salcido [facility] Start: 08-26-2022 End: 08-26-2022 ambulatory Kerline Rajan Other [employer] Other Start: 08-26-2022 Office outpatient vi sit 25 minutes Kerline Rajan [facility] Start: 07-07-2022 End: 07-08-[address] DOCTOR BRADY Facility: Start: 05-10-2022 End: 05-10-2022 ambulatory Kerline Rajan Other [employer] Other Start: 05-10-2022 Telephone encounter Kerline Salcido [facility] Start: 04-29-2022 End: 04-29-2022 ambulatory Dontae Maharaj Other [employer] Other Start: 04-29-2022 Encounter for other preprocedural examination Dontae Maharaj [facility] Start: 04-29-2022 Office outpatient vi sit 15 minutes Dontae Maharaj [facility] Start: 04-07-2022 End: 04-07-2022 ambulatory Dontae Maharaj Other [employer] Other Start: 04-07-2022 Office outpatient vi sit 15 minutes Dontae Maharaj [facility] Start: 03-10-2022 End: 03-10-2022 ambulatory Kerline Rajan Other [employer] Other Start: 03-10-2022 Telephone encounter Kerline Salcido [facility] [place] Start: 12-10-2021 Encounter for genera l adult medical examination without abnormal findings KERLINE RAJAN [facility] Start: 12-10-2021 End: 12-10-2021 ambulatory Kerline Rajan Other [employer] Other Start: 12-10-2021 Telephone encounter Kerline Salcido [facility] Start: 12-08-2021 End: 12-09-2021 ambulatory KERLINE RAJAN Facility:[facility] Start: 11-27-2021 ambulatory Lamonte Medrano [facility] ity:[id number] Start: 11-24-2021 End: 11-24-2021 ambulatory Gail Zapata Other [employer] Other Start: 11-24-2021 Office outpatient vi sit 15 minutes Gail Zapata [facility] Start: 11-12-2021 End: 11-12-2021 ambulatory Kerline Rajan Other [employer] Other Start: 11-12-2021 Telephone encounter Kerline Salcido [facility] Start: 11-11-2021 End: 11-12-[address] MARYAM HUGHES Facility:[facility] Start: 11-11-2021 End: 11-11-2021 Patient encounter procedure VALEIRE HARPER [facility] Start: 10-23-2021 End: 10-23-2021 ambulatory HENRIETTA LYNCH . Facility:[facility] Start: 10-07-2021 End: 10-07-2021 ambulatory Gail Zapata Other [employer] Other Start: 10-07-2021 Office outpatient vi sit 15 minutes Gail Zapata [facility] Start: 10-07-2021 Telephone encounter Kerline Salcido [facility] Start: 10-05-2021 End: 10-05-2021 ambulatory KERLINE RAJAN [facility] [employer] Other Start: 10-05-2021 Encounter for genera l adult medical examination without abnormal findings Kerline Rajan [facility] Start: 10-05-2021 Periodic preventive med est patient 40-64yrs Kerline Rajan [facility] [place] Start: 09-21-2021 End: 09-21-2021 ambulatory Kerline Rajan Other [employer] Other Start: 09-21-2021 Telephone encounter Kerline Rajan [facility] Start: 08-06-2021 End: 08-06-2021 ambulatory Kerline Rajan Other [employer] Other Start: 08-06-2021 Telephone encounter Kerline Salcido [facility] [place] Start: 07-24-2021 End: 07-24-2021 ambulatory Kerline Rajan Other [employer] Other Start: 07-24-2021 Telephone encounter Kerline Rajan [facility] [place] Start: 07-23-2021 End: 07-24-2021 ambulatory KERLINE RAJAN Facility:[facility] Start: 05-26-2021 End: 05-26-2021 ambulatory Kerline Rajan Other [employer] Other Start: 05-26-2021 Telephone encounter Kerline Salcido [facility] Start: 05-18-2021 End: 05-18-2021 ambulatory Kerline Rajan Other [employer] Other Start: 05-18-2021 Telephone encounter Kerline Rajan [facility] [place] Start: 04-16-[address] Kerline Rajan Facility:[id number] Start: 01-23-2021 End: 01-23-2021 ambulatory Gail Guerreromond Other [employer] Other Start: 01-23-2021 Office outpatient vi sit 15 minutes Gail Zapata [facility] Start: 12-09-2020 Office outpatient vi sit 15 minutes Yanet Loja [facility] Procedures Date Procedure Procedure Detail Performing Clinician Start: 12-24-2022 Esophagogastroduodenoscopy DO Kerline Deb kingr Work Phone: Start: 08-16-2016 Fluoroscopy guided extracorporeal shockwave lithotripsy of calculus of left kidney VALERIEPAUL HARPER Abdominal hysterectomy BENITEZ HARPER Appendectomy VALERIE HARPER Cholecystectomy VALERIE COX Colonoscopy VALERIE HARPER Decompression of median nerve Skyler MORROW Plan of Treatment Date Care Activity Detail Author Start: 12-24-2022 [facility] Patient Education Hemorrhoids (DC) [facility] Work Phone: Immunizations Immunization Date Immunization Notes Care Provider Fa suly 03-12-2020 Toradol 30 mg/ml Yanet Whitney cole Other [employer] Other 01-21-2020 Toradol 30 mg/ml Yanet B kelsey Other [employer] Other 07-18-2019 Depo-Medrol 80 mg Yanet Loja Other [employer] Other 06-24-2016 tetanus toxoid, reduced diphtheria toxoid, and acellular pertussis vaccine, adsorbed Skyler MORROW [facility] Payers Date Payer Category Payer Medicaid [id number] 2. [id number] 2022 Private Health Insurance [id number] 2020 Unknown [id number] 2.1 [id number] 1969 Unknown [id number] 1969 Unknown [id number] 1969 Unknown [id number] 2.16.84 [id number] 1969 Unknown [id number] 2.16.84 [id number] 1969 Unknown [id number] 2.16.84 [id number] 1969 Unknown [id number] 2.16.84 [id number] 1969 Unknown [id number] 2.16.84 [id number] 1969 Unknown [id number] 2.16.84 [id number] 1969 Unknown [id number] 2.16.84 [id number] 1969 Unknown [id number] 2.16.8 [id number] 1969 Unknown [id number] 2.16.8 [id number] 1959 Blue Cross Blue Shield [id number] [id number] 1959 Private Health Insurance [id number] [id number] 1959 Self-pay 1959 Unknown [id number] Medicaid [employer] [id number] Unknown [id number] Unknown [id number] 2.16.8 [id number] Social History Date Type Detail Facility Unknown if ever smoked [facility] Other Sex Assigned At [facility] Other Start: 11-11-2021 End: 11-15-2022 Tobacco smoking status Light tobacco smoker (finding) [facility] Start: 12-24-2022 Tobacco smoking status Smoker (findi ng) [facility] Tobacco smoking status Never [facility] Start: 1970 Sex Assigned At Female [facility] Goals Date Patient Goal Desired Activity /State Functional Status Date Assessment Result Facility 11-15-2022 Functional Status N/A [facility] 11-11-2021 Functional Status N/A [facility] Clinical Notes 12-09-2020 to 12-24-2022 Note Date & Type Note Facility 12-24-2022 Procedure note [facility] 11-24-2022 Evaluation note Encounter Date Diagnosis Assessment Notes Nov, Sore throat (ICD-10 - J02.9) Nov, Acute sinusitis, recurrence not specified, unspecified location (ICD-10 - J01.90) Sinusitis home care material was printed Drink plenty fluids, get plenty of rest. Take the Medrol Dosepak as prescribed until gone. Use the fluticasone nasal spray as prescribed until your symptoms improve. Take Tylenol or Motrin as needed for aches pains or fevers. Follow-up with your family physician if no improvement in 2 to 3 days. [employer] Other 09-14-2023 Evaluation note* Encounter Date Diagnosis Assessment Notes Treatment Notes Treatment Clinical Notes Nov, GERD (gastroesophageal reflux disease) (ICD-10 - K21.9) Pt is taking omeprazole for GERD Nov, Nausea (ICD-10 - R11.0) Pt states she feels nauseous all of the time. Pt has felt this way for months Nov, Hemorrhoids (ICD-10 - K64.9) Pt does bleed from the hemorrhoids Pt informed after endoscopy will determine if omeprazole dosage will be increased [employer] Other 09-11-2023 Hospital Discharge instructions Patient Education 11/15/2022 16:56:43 Dietary Guidelines to Help Prevent Kidney Stones Dietary Guidelines to Help Prevent Kidney Stones Kidney stones are deposits of minerals and salts that form inside your kidneys. Your risk of developing kidney stones may be greater depending on your diet, your lifestyle, the medicines you take, and whether you have certain medical conditions. Most people can lower their chances of developing kidney stones by following the instructions below. Your dietitian may give you more specific instructions depending on your overall health and the type of kidney stones you tend to develop. What are tips for following this plan? Reading food labels Choose foods with no salt added or low-salt labels. Limit your salt (sodium) intake to less than 1,500 mg a day. Choose foods with calcium for each meal and snack. Try to eat about 300 mg of calcium at each meal.Foods that contain 200 500 mg of calcium a serving include: ?8 oz (237 mL) of milk, dfejgns-nqzbwalhlpwi-qmpgj milk, and calcium- fortifiedfruit juice. Calcium-fortified means that calcium has been added to these drinks. ?8 oz (237 mL) of kefir, yogurt, and soy yogurt. ?4 oz (114 g) of tofu. ?1 oz (28 g) of cheese. ?1 cup (150 g) of dried figs. ?1 cup (91 g) of cooked broccoli. ?One 3 oz (85 g) can of sardines or mackerel. Most people need 1,000 1,500 mg of calcium a day. Talk to your dietitian about how much calcium is recommended for you. Shopping Buy plenty of fresh fruits and vegetables. Most people do not need to avoid fruits and vegetables, even if these foods contain nutrients that may contribute to kidney stones. When shopping for convenience foods, choose: ?Whole pieces of fruit. ?Pre-made salads with dressing on the side. ?Low-fat fruit and yogurt smoothies. Avoid buying frozen meals or prepared deli foods. These can be high in sodium. Look for foods with live cultures, such as yogurt and kefir. Choose high-fiber grains, such as whole-wheat breads, oat bran, and wheat cereals. Cooking Do not add salt to food when cooking. Place a salt shaker on the table and allow each person to addhis or her own salt to taste. Use vegetable protein, such as beans, textured vegetable protein (TVP), or tofu, instead of meat inpasta, casseroles, and soups. Meal planning Eat less salt, if told by your dietitian. To do this: ?Avoid eating processed or pre-made food. ?Avoid eating fast food. Eat less animal protein, including cheese, meat, poultry, or fish, if told by your dietitian. To dothis: ?Limit the number of times you have meat, poultry, fish, or cheese each week. Eat a diet free of meat at least 2 days a week. ?Eat only one serving each day of meat, poultry, fish, or seafood. ?When you prepare animal protein, cut pieces into small portion sizes. For most meat and fish, one serving is about the size of the palm of your hand. Eat at least five servings of fresh fruits and vegetables each day. To do this: ?Keep fruits and vegetables on hand for snacks. ?Eat one piece of fruit or a handful of berries with breakfast. ?Have a salad and fruit at lunch. ?Have two kinds of vegetables at dinner. Limit foods that are high in a substance called oxalate. These include: ?Spinach (cooked), rhubarb, beets, sweet potatoes, and Singaporean chard. ?Peanuts. ?Potato chips, russian fries, and baked potatoes with skin on. ?Nuts and nut products. ?Chocolate. If you regularly take a diuretic medicine, make sure to eat at least 1 or 2 servings of fruits or vegetables that are high in potassium each day. These include: ?Avocado. ?Banana. ?[place], prune, carrot, or tomato juice. ?Baked potato. ?Cabbage. ?Beans and split peas. Lifestyle Drink enough fluid to keep your urine pale yellow. This is the most important thing you can do. Spread your fluid intake throughout the day. If you drink alcohol: ?Limit how much you use to: ?0 1 drink a day for women who are not . ?0 2 drinks a day for men. ?Be aware of how much alcohol is in your drink. In the [place] one drink equals one 12 oz bottle of beer (355 mL), one 5 oz glass of wine (148 mL), or one 1 oz glass of hard liquor (44 mL). Lose weight if told by your health care provider. Work with your dietitian to find an eating plan and weight loss strategies that work best for you. General information Talk to your health care provider and dietitian about taking daily supplements. You may be told thefollowing depending on your health and the cause of your kidney stones: ?Not to take supplements with vitamin C. ?To take a calcium supplement. ?To take a daily probiotic supplement. ?To take other supplements such as magnesium, fish oil, or vitamin B6. Take edao-urd-zgwcqlf and prescription medicines only as told by your health care provider. These include supplements. What foods should I limit? Limit your intake of the following foods, or eat them as told by your dietitian. Vegetables Spinach. Rhubarb. Beets. Canned vegetables. Pickles. Olives. Baked potatoes with skin. Grains Wheat bran. Baked goods. Salted crackers. Cereals high in sugar. Meats and other proteins Nuts. Nut butters. Large portions of meat, poultry, or fish. Salted, precooked, or cured meats, such as sausages, meat loaves, and hot dogs. Dairy Cheese. Beverages Regular soft drinks. Regular vegetable juice. Seasonings and condiments Seasoning blends with salt. Salad dressings. Soy sauce. Ketchup. Barbecue sauce. Other foods Canned soups. Canned pasta sauce. Casseroles. Pizza. Lasagna. Frozen meals. Potato chips. [place] fries. The items listed above may not be a complete list of foods and beverages you should limit. Contact a dietitian for more information. What foods should I avoid? Talk to your dietitian about specific foods you should avoid based on the type of kidney stones youhave and your overall health. Fruits Grapefruit. The item listed above may not be a complete list of foods and beverages you should avoid. Contact adietitian for more information. Summary Kidney stones are deposits of minerals and salts that form inside your kidneys. You can lower your risk of kidney stones by making changes to your diet. The most important thing you can do is drink enough fluid. Drink enough fluid to keep your urine pale yellow. Talk to your dietitian about how much calcium you should have each day, and eat less salt and animal protein as told by your dietitian. This information is not intended to replace advice given to you by your health care provider. Make sure you discuss any questions you have with your health care provider. Document Revised: 11/02/2021 Document Reviewed: 11/02/2021 [facility] Patient Education 2022 [employer]. Follow Up Care 11/11/2021 15:56:40 With:GEOVANNA MORA, Skyler Nunez, URL Address: [facility] [address], [place] [address]- [phone] When: Unknown [facility] 08-25-2023 Evaluation note* Encounter Date Diagnosis Assessment Notes Treatment Notes Treatment Clinical Notes Oct, Cellulitis of left external ear (ICD-10 - H60.12) Discussed with patient ear canal and TM are normal. Does have exam consistent with cellulitis of external ear. Will treat with Augmentin, finish entire course. Probiotic supplement such as align or Culturelle encouraged to decrease GI side effects. Take antibiotic with food. Keep area clean with soap and water. Avoid scratching or picking at area. Follow-up with PCP if not gradually improving over the next 5 to 7 days, sooner if significantly spreading erythema, edema. Patient verbalized understanding of treatment plan. May use Tylenol or ibuprofen for discomfort. [employer] Other 08-17-2023 Evaluation note* Encounter Date Diagnosis Assessment Notes Treatment Notes Treatment Clinical Notes Oct, Well adult exam (ICD -10 - Z00.00) 52-year-old female who has a few chronic medical conditions but is doing well except for her lumbar degenerative disc disease where she will get intermittent aggravation especially with increased activity work. Patient will be started on cyclobenzaprine 10 mg as needed to help alleviate the muscle strain in the paraspinal muscles. If this is not improving her pain significantly I would recommend pain management. Patient is due for mammogram and this was ordered for her. She will be contacted with results. She is not due for other lab work at this time. Patient is to follow-up in 6 months or sooner if an acute issue arises. Oct, Anxiety (ICD-10 - F41.9) Oct, Tension headache (IC D-10 - G44.209) Oct, GERD (gastroesophage al reflux disease) (ICD-10 - K21.9) Oct, Lumbar degenerative disc disease (ICD-10 - M51.36) Oct, Cigarette nicotine dependence without complication (ICD-10 - F17.210) Oct, Psychophysiological insomnia (ICD-10 - F51.04) Oct, Encounter for screen ing mammogram for malignant neoplasm of breast (ICD-10 - Z12.31) [employer] Other 06-22-2023 Evaluation note* Encounter Date Diagnosis Assessment Notes Treatment Notes Treatment Clinical Notes Aug, Nausea (ICD-10 - R11.0) Patient has chronic nausea in the mornings as well as reflux symptoms. She is not gotten complete resolution with PPI therefore an EGD would be warranted given her age and smoking history. Patient will be referred to GI for this. Aug, Chronic cough (ICD-10 - R05.3) Due to patient's smoking history and history of chronic cough we will obtain a pulmonary function test. She will be contacted with the results and will determine what the best treatment course is based on the results. Aug, Cigarette nicotine dependence without complication (ICD-10 - F17.210) Discussed smoking cessation and patient would like to try Chantix. Potential side effects of this medication as well as how to begin initiating this medication was discussed with the patient. She will call in 3 weeks of being on the medicine and let me know if she is tolerating it and then a continuing month pack will be prescribed for her. 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 She was also instructed to consider not using ear buds and to not scratch at it with Q-tips. [employer] Other 02-23-2023 Evaluation note* Encounter Date Diagnosis Assessment Notes Treatment Notes Treatment Clinical Notes Apr, Nausea (ICD-10 - R11.0) Apr, Pre-operative clearance (ICD-10 - Z01.818) 51-year-old female who is here for preoperative clearance for bilateral carpal tunnel syndrome surgery plan. She had preoperative lab work done and this was reviewed with her today. Her hemoglobin is within a acceptable range. We did discuss her risk for this surgery and given her medical history and her current physical condition she has an acceptable risk for this operation. Based on the revised cardiac risk index she is a Class 1 and below a 1 % risk for this operation from a cardiac standpoint. Recent EKG showed NSR with no ectopy. She has a less than 1% risk for pulmonary injury based on the surgical lung predictive index. From a medical standpoint and based on risk factors patient can safely undergo the planned operation and will follow up post operatively if needed otherwise we will follow up in 1 month post surgery. Apr, GERD (gastroesophageal reflux disease) (ICD-10 - K21.9) Apr, Other infective acute otitis externa of both ears (ICD-10 - H60.393) Apr, Carpal tunnel syndrome (ICD-10 - G56.00) [facility] Other 02-01-2023 Evaluation note* Encounter Date Diagnosis Assessment Notes Treatment Notes Treatment Clinical Notes Apr, Anxiety (ICD-10 - F41.9) 51 y.o. female seen in the office with increased anxiety due to upcoming carpal tunnel surgery and current finacnes. 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 We again addressed benefits of individualized psychiatric counseling. She acknowledges understanding but does not want referral at this time. Advised that we will increase her venlafexine to 150mg ER orally daily. SE's and redflag symptoms were reviewed with her and she is to call back with any concerns with increased dose. Advised that will f/u in 1 month to evaluate status. Patient acknowledges understandng and agrees to treatment. Apr, Symptoms of depression (ICD-10 - F32.9) Continue with Topiramate 100mg taking 1 and 1/2 tabs daily along with Buspirone 30mg orally BID. She reports that depression is well controlled and denies SI/HI. Apr, Essential hypertension (ICD-10 - I10) Patient reported symptoms of elevated BP and today her BP was checked several times today an was within normal limits. Advised that will hold off on starting a BP medication to avoid low BPs. Script was sent for a BP cuff for her to take her BP 2-3 times a week and at the same times on the days that she takes them. She is agreeable to this and acknowledges to call back if readings are above 140/90. Apr, Genital herpes (ICD-10 - A60.00) [facility] Other 09-20-2022 Evaluation note* Encounter Date Diagnosis Assessment Notes Treatment Notes Treatment Clinical Notes Nov, Contact with and (suspected) exposure to other viral communicable diseases (ICD-10 - Z20.828) Nov, COVID-19 (ICD-10 - U07.1) Discharge Instructions for COVID-19 (Suspected or Confirmed ) material was printed Drink plenty fluids, get plenty of rest. Take Tylenol or Motrin as needed for aches pains or fevers continue home medications as prescribed. You must quarantine for 5 days after the onset of your symptoms. Follow-up with your family physician if no improvement in 2 to 3 days [facility] Other 09-08-2022 Evaluation note* Encounter Date Diagnosis Assessment Notes Treatment Notes Treatment Clinical Notes Nov, Viral upper respiratory infection (ICD-10 - J06.9) [facility] Other 09-07-2022 Hospital Discharge instructions Patient Education 11/11/2021 15:24:33 Kidney Stones, Rlti-mc-Joju Kidney Stones Kidney stones are rock-like masses that form inside of the kidneys. Kidneys are organs that make pee (urine). A kidney stone may move into other parts of the urinary tract, including: The tubes that connect the kidneys to the bladder (ureters). The bladder. The tube that carries urine out of the body (urethra). Kidney stones can cause very bad pain and can block the flow of pee. The stone usually leaves your body (passes) through your pee. You may need to have a doctor take out the stone. What are the causes? Kidney stones may be caused by: A condition in which certain glands make too much parathyroid hormone (primary hyperparathyroidism). A buildup of a type of crystals in the bladder made of a chemical called uric acid. The body makes uric acid when you eat certain foods. Narrowing (stricture) of one or both of the ureters. A kidney blockage that you were born with. Past surgery on the kidney or the ureters, such as gastric bypass surgery. What increases the risk? You are more likely to develop this condition if: You have had a kidney stone in the past. You have a family history of kidney stones. You do not drink enough water. You eat a diet that is high in protein, salt (sodium), or sugar. You are overweight or very overweight (obese). What are the signs or symptoms? Symptoms of a kidney stone may include: Pain in the side of the belly, right below the ribs (flank pain). Pain usually spreads (radiates) to the groin. Needing to pee often or right away (urgently). Pain when going pee (urinating). Blood in your pee (hematuria). Feeling like you may vomit (nauseous). Vomiting. Fever and chills. How is this treated? Treatment depends on the size, location, and makeup of the kidney stones. The stones will often pass out of the body through peeing. You may need to: Drink more fluid to help pass the stone. In some cases, you may be given fluids through an IV tube put into one of your veins at the hospital. Take medicine for pain. Make changes in your diet to help keep kidney stones from coming back. Sometimes, medical procedures are needed to remove a kidney stone. This may involve: A procedure to break up kidney stones using a beam of light (laser) or shock waves. Surgery to remove the kidney stones. Follow these instructions at home: Medicines Take yqir-ois-prqlkhu and prescription medicines only as told by your doctor. Ask your doctor if the medicine prescribed to you requires you to avoid driving or using heavy machinery. Eating and drinking Drink enough fluid to keep your pee pale yellow. You may be told to drink at least 8 10 glasses of water each day. This will help you pass the stone. If told by your doctor, change your diet. This may include: ?Limiting how much salt you eat. ?Eating more fruits and vegetables. ?Limiting how much meat, poultry, fish, and eggs you eat. Follow instructions from your doctor about eating or drinking restrictions. General instructions Collect pee samples as told by your doctor. You may need to collect a pee sample: ?24 hours after a stone comes out. ?8 12 weeks after a stone comes out, and every 6 12 months after that. Strain your pee every time you pee (urinate), for as long as told. Use the strainer that your doctor recommends. Do not throw out the stone. Keep it so that it can be tested by your doctor. Keep all follow-up visits as told by your doctor. This is important. You may need follow-up tests. How is this prevented? To prevent another kidney stone: Drink enough fluid to keep your pee pale yellow. This is the best way to prevent kidney stones. Eat healthy foods. Avoid certain foods as told by your doctor. You may be told to eat less protein. Stay at a healthy weight. Where to find more information National Kidney Foundation (NKF): www.kidney.org Urology Care Foundation (UCF): www.urologyhealth.org Contact a doctor if: You have pain that gets worse or does not get better with medicine. Get help right away if: You have a fever or chills. You get very bad pain. You get new pain in your belly (abdomen). You pass out (faint). You cannot pee. Summary Kidney stones are rock-like masses that form inside of the kidneys. Kidney stones can cause very bad pain and can block the flow of pee. The stones will often pass out of the body through peeing. Drink enough fluid to keep your pee pale yellow. This information is not intended to replace advice given to you by your health care provider. Make sure you discuss any questions you have with your health care provider. Document Released: 08/09/2008 Document Revised: 07/10/2019 Document Reviewed: 07/10/2019 [facility] Patient Education 2019 [employer]. Follow Up Care 08/18/2020 16:22:15 With:LEROY BONILLA, VALERIE Olmos, URL Address: [address] [place] [address] When: Unknown [facility] 08-03-2022 Evaluation note* Encounter Date Diagnosis Assessment Notes Treatment Notes Treatment Clinical Notes Oct, Cough, unspecified type (ICD-10 - R05.9) Oct, Viral upper respiratory infection (ICD-10 - J06.9) Viral upper respiratory infection: adult home care material was printed Drink plenty fluids, get plenty of rest. Take Tylenol or Motrin for aches pains or fevers. Off work today tomorrow and Tuesday. Follow-up with your family physician if no improvement in 2 to 3 days Oct, Nausea (ICD-10 - R11.0) [facility] Other 08-01-2022 Evaluation note* Encounter Date Diagnosis Assessment Notes Treatment Notes Treatment Clinical Notes Oct, GERD (gastroesophageal reflux disease) (ICD-10 - K21.9) Oct, Well adult exam (ICD-10 - Z00.00) 51-year-old female who has several chronic medical conditions but is overall does well except for some musculoskeletal complaints. VNA is working up her carpal tunnel issue and getting her orthopedic surgery. She does have some complaints of right and left knee pain. X-rays were ordered today. She is due for updated lab work and this was ordered as well. She will be contacted with the results of this testing. Medications were refilled for her. She is not due for any other screening testing or examinations at this time. Oct, Anxiety (ICD-10 - F41.9) Oct, Tension headache (ICD-10 - G44.209) Oct, Herpes simplex virus (HSV) infection of vagina (ICD-10 - A60.04) Oct, Other chronic pain (ICD-10 - G89.29) Oct, Pain in right knee (ICD-10 - M25.561) Oct, Pain in left knee (ICD-10 - M25.562) Oct, Encounter for screening for cardiovascular disorders (ICD-10 - Z13.6) Oct, Medication monitoring encounter (ICD-10 - Z51.81) Oct, Essential hypertension (ICD-10 - I10) [facility] Other 05-20-2022 Evaluation note* Encounter Date Diagnosis Assessment Notes Treatment Notes Treatment Clinical Notes July, Thyroid nodule (ICD-10 - E04.1) [facility] Other 03-14-2022 Evaluation note* Encounter Date Diagnosis Assessment Notes Treatment Notes Treatment Clinical Notes May, Tension headache (ICD-10 - G44.209) [facility] [facility] Other 11-19-2021 Evaluation note* Encounter Date Diagnosis Assessment Notes Treatment Notes Treatment Clinical Notes Jan, Contact with and (suspected) exposure to other viral communicable diseases (ICD-10 - Z20.828) Jan, Bronchitis (ICD-10 - J40) Jan, Other Additional time spent conducting pre-visit phone call, screening for symptoms, instructions on social distancing, application and removal of PPE, and cleaning of examination room, equipment and supplies was preformed. Patient education given for testing methodology and results. Patient care instructions given in writting by [facility] document. [facility] Other 10-05-2021 Evaluation note* Encounter Date Diagnosis Assessment Notes Treatment Notes Treatment Clinical Notes Dec, Contact with and (suspected) exposure to other viral communicable diseases (ICD-10 - Z20.828) Today test was performed in office. Results are currently negative. That does not mean that you will not develop COVID or do not currently have a low viral count of COVID. The rapid test works best if symptoms have been over 72 hours and the results can vary if you are asymptomatic There is a higher chance of false negative results to occur if testing is performed too soon. It is recommended that even if results are negative and you have been exposed to someone that has COVID that you follow current CDC recommendations. These can be found at CDC.GOV. Follow up with primary care provider if symptoms persist or do not improve Dec, Bronchitis (ICD-10 - J40) Dec, Other Additional time spent conducting pre-visit phone call, screening for symptoms, instructions on social distancing, application and removal of PPE, and cleaning of examination room, equipment and supplies was preformed. Patient education given for testing methodology and results. Patient care instructions given in writting by [facility] document. [facility] Other Evaluation + Plan note Future Appointments Appointment Date:11/15/2022 03:15:00 PM Scheduled Provider:Skyler MORROW MD Location:[facility] Appointment Type:URO Office Visit [facility] evaluation + Plan note Future Appointments Appointment Date:11/21/2023 03:00:00 PM Scheduled Provider:Skyler MORROW MD Location:[facility] Appointment Type:URO Office Visit [facility] evalphsqsn noteNo [facility] Other Evaluation noteNo assessment information available [facility] Work Phone: History and physical note Author Shravan Haque [facility] December 24, 2022 7:57am Note Date/Time December 24, 2022 7 :57am [facility] [address] [place] [address] Gastroenterology H&P Signed Patient: Gail Reinoso MR#: [id number] : 1970 Acct:[id number] Age/Sex: 52 / F Adm Date: 3 Loc: Room: Type: [facility] Attending Dr: Shravan Haque MD Copies to: Shravan Haque MD Kerline Rajan, DO~ Date of Service: 12/24/2022 HISTORY & PHYSICAL: Patient's history with special attention to the cardiovascular, pulmonary systems and the current problem was reviewed with the patient immediately prior to the procedure. Present medications and doses reviewed in the EMR. Allergies and pertinent laboratory tests were also reviewedat this time in the EMR. The physical examination, as below, was then performed. Indication, assessment and HPI: 52-year-old female with chronic heartburn here for EGD to assess for Bhatt's and colonoscopy to evaluate hematochezia and forcolon cancer screening PHYSICAL EXAMINATION Mouth and Pharynx : Moist mucus membranes, normal dentition Cardiac: Regular rate, regular rhythm Pulmonary: Clear to auscultation bilaterally, no wheezing Neurological: Alert and oriented x3, no focal deficits noted Abdomen: Abdomen soft, non-tender REVIEW OF SYSTEMS Constitutional: Denies malaise, fevers Cardiovascular: Denies chest pain, palpitations Respiratory: Denies shortness of breath, wheezing Gastrointestinal: Per HPI Genitourinary: Denies dysuria, polyuria Musculoskeletal: Denies joint swelling, joint stiffness Neurological: Denies numbness, tingling Integumentary: Denies rashes, skin lesions Endocrine: Denies fatigue, weight loss Written informed consent obtained from the patient. Risks (including but not limited to perforation, infection, bloating, bleeding, need for emergent surgeryand loss of life), benefits and alternatives explained and questions answered. The patient verbalized understanding. Based on history patient is an appropriate candidate for the procedure. Shravan Haque M.D. 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 Medical History endometriosis Medical History Genital HSV Medical History Carpal Tunnel Surgical History hysterectomy Surgical History appendectomy Surgical History cholecystectomy Surgical History laparoscopy Surgical History Neck Surgery Surgical History kidney stone Hospitalization History see above [employer] Other History general Narrative - Reported* Type Description Date Medical History hypertension Medical History depression Medical History migraine headache Medical History endometriosis Medical History Genital HSV Medical History Carpal Tunnel 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 Surgical History hysterectomy Surgical History appendectomy Surgical History cholecystectomy Surgical History laparoscopy Surgical History Neck Surgery Surgical History kidney stone Hospitalization History see above [facility] Other History general Narrative - Reported* Type Description Date Medical History hypertension Medical History depression Medical History migraine headache Medical History endometriosis Medical History Genital HSV Medical History Carpal Tunnel 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 In some cases, this may be from a few hours to a day. Walking may help relieve the discomfort. - Your throat may feel sore today from the scope that the doctor passed through your throat to visualize your stomach. Take a throat lozenge or suck on ice to ease the discomfort. - You may notice some streaks of blood in your sputum if the doctor has taken a biopsy. - You should begin to recover from anesthesia within 1 hour of the procedure, however may feel groggy for the next 24 hours. DO's AND DON'Ts: - Call your doctor right away if you have a hard abdomen, severe pain, vomiting or if you cough up large amounts of blood. - Call your doctor if you develop any rashes, hives or difficulty breathing. - If you take 81 mg aspirin for your heart it is safe to resume this medication. - If you take other blood thinner medications your doctor will instruct you when these can safely be resumed. - Do NOT drive for 24 hours. - Do NOT operate machinery such as power tools, lawn mowers, snow blowers, sewing machines, etc. for 24 hours. - Avoid alcoholic beverages and drugs for allergies, nerves, or sleep. - Do NOT stay alone. Do NOT leave your child unattended. - Do NOT make important personal or business decisions or sign any legal documents. - Eat solid foods and drink liquids in smaller amounts than usual until normal appetite returns. If you should experience an upset stomach, liquids high in sugar content (soda, Hernesto-Aid, non-acid juices) are recommended. - Do NOT smoke. - Do take it easy today. You need not stay in bed, but avoid strenuous activities such as jogging or working out. DISCHARGE INSTRUCTIONS FOR COLONOSCOPY WHAT TO EXPECT: - You may feel full, gassy or cramping after your procedure. In some cases, this may be from a few hours to a day. Walking may help relieve the discomfort. - You should begin to recover from anesthesia within 1 hour of the procedure, however may feel groggy for the next 24 hours. DO's AND DON'Ts: - Call your doctor right away if you have a hard abdomen, sever pain, are passing lots of bright red blood or clots. - Call your doctor if you develop any rashes, hives or difficulty breathing. - Let your doctor know if you have not had a bowel movement by 3 days after your procedure. - If you take 81 mg aspirin for your heart it is safe to resume this medication. - If you take other blood thinner medications your doctor will instruct you when these can safely be resumed. - Do NOT drive for 24 hours. - Do NOT operate machinery such as power tools, [employer] mowers, [employer] blowers, sewing machines, etc. for 24 hours. - Avoid alcoholic beverages and drugs for allergies, nerves, or sleep. - Do NOT stay alone. Do NOT leave your child unattended. - Do NOT make important personal or business decisions or sign any legal documents. - Eat solid foods and drink liquids in smaller amounts than usual until normal appetite returns. If you should experience an upset stomach, liquids high in sugar content (soda, Hernesto-Aid, non-acid juices) are recommended. - You can resume normal activities tomorrow. FOLLOW UP & RECOMMENDATIONS: -Increase omeprazole to 40 mg twice daily for 12 weeks then decrease to once daily -Notify the doctor if you have any problems. -Repeat colonoscopy in 10 years. -Follow up with PCP. - Office number [phone]. [facility] Work Phone: Progress note No data available for this section [facility] Summary Purpose Family History No Family History Records Found Relationship Condition Age at Onset Recorded Date/T kelly father Malignant neoplasm of lung Unknown Malignant neoplasm of prostate Unknown Hypertension Unknown Not Specified Hypertension Unknown Depression Unknown sister Diabetes mellitus Unknown grandparent Myocardial infarction Unknown Malignant neoplasm of colon Unknown grandparent Malignant neoplasm of stomach Unknown Diabetes mellitus Unknown Advance Directives No Advanced Directives Records Found Advance Directive Response Recorded Date/ Time Advance Directives No September 13 11:05pm Reason for Referral Reason * Waiting for appt consider EGD due to smoking hx and uncontrolled reflux on 40 mg Omeprazole Diagnosis 1 GERD (gastroesophage al reflux disease) (K21.9) Diagnosis 2 Nausea (R11.0) Diagnosis 3 Cigarette nicotine d ependence without complication (F17.210) Referral Organization [facility] Family Medicin e [place] Referring Provider First Name Kerline Referring Provider Last Name Satinder Referring Provider Specialty Family Prac ana Referred Organization [facility] Gastroenterolo gy Referred Provider Ariel Rodriguez Referred Address [address] [address] ,[place], [place],[address] Referred Provider Specialty Gastroentero logy Referral Priority Routine General Notes Bisi Coleman 10:21:36 AM >referral received and sent p2p successful per log Chief Complaint and Reason for Visit Chief Complaint GERD, Nausea, Screen ing Additional Source Comments INFORMATION SOURCE (unrecogn ized section and content) DATE CREATED AUTHOR 05/13/2021 [employer] DATE CREATED AUTHOR AUTHOR'S ORGANIZ ATION 12/07/2021 [facility] DATE CREATED AUTHOR AUTHOR'S ORGANIZ ATION 07/15/2022 [facility] DATE CREATED AUTHOR AUTHOR'S ORGANIZ ATION 11/16/2022 [facility] DATE CREATED AUTHOR AUTHOR'S ORGANIZ ATION 03/14/2023 [facility] REASON FOR VISIT (unrecogniz ed section and content) #18 SILVER HUNDAI, EXPOSED, SOB, HEADACHE, COVID Provider Visit#32 COUGH, SORE THROAT, EAR PAIN, FATIGUE, DIARRHEA, LOSS OF TASTENo InformationrefillUltrasound resultsThyroid nodulerefillSILVER HONDAI, COUGH, CONGESTION, FATIGUE, H/A,No InformationAnnualXR resultsSPOT 2 [id number] DIARRHEA, SORE THROAT, ACHY EARS, LIGHT-HEADED, DIZZY, TIREDLab resultsNo Information6 month Follow upsx clearancerefillDISCUSS GETTING SOME LAB WORK AND OTHER CONCERNSswollen hemorrhoidsMAIL PPWPlasmaphoresis paperwrkAWVEARACHENo InformationPATIENT IS HERE FOR GERD/NAUSEA/HEMORRHOIDSHead ache, sore throatsickGASTRO REFERRALBW order Care Team (unrecognized sect ion and content) Team Status: Active Member Role Status Dates Kerline Rajan , DO Primary Care Provider Active Team Status: Inactive Member Role Status Dates Kerline Rajan , DO Primary Care Provider Active Shravan Haque MD Attending Provider Active FOR RECORDS PERTAINING TO PATIENTS WHO ARE OR HAVE BEEN ENROLLED IN A CHEMICAL DEPENDENCY/SUBSTANCEABUSE PROGRAM, SOME INFORMATION MAY BE OMITTED. This clinical summary was aggregated from multiple sources. Caution should be exercised in using it in the provision of clinical care. This summary normalizes information from multiple sources, and as a consequence, information in this document may materially change the coding, format and clinical context of patient data. In addition, data may be omitted in some cases. CLINICAL DECISIONS SHOULD BE BASED ON THE PRIMARY CLINICAL RECORDS. [facility] provides no warranty or guarantee of the accuracy or completeness of information in this document.
--- NOTE | 2023-04-13 18:54 | ED_ITS ---
HPI - Chest Pain General Chief Complaint: Chest Pain Stated Complaint: High Blood Pressure Time Seen by Provider: 04/13/23 18:49 Source: patient Mode of arrival: walk-in Limitations: no limitations History of Present Illness HPI narrative: 52-year-old female presents to the emergency department from eye doctor with complaint of elevated blood pressure. Patient was over there for glasses, was diagnosed with stye, but nurse checked blood pressure when noted to be elevated sent in for further evaluation. Denies prior history of elevated blood pressure. Patient has a lot of chronic symptoms including headaches, dizziness, lightheadedness. Has had constant chest pain over the past week. Patient with history of Chiari I malformation. Admits to having some congestion, but has not been taking anything like Sudafed for symptoms. Daughter states that she drinks a lot of energy drinks. Denies any otherwise new symptoms for away from her chronic ones. Denies any shortness of breath, visual changes, focal weakness. Quality:?as above Severity:?moderate Timing:?as above Context: Normal setting and activity? Modifying factors:?none Associated symptoms: as above Related Data Home Medications Medication Instructions Recorded Confirmed buspirone 30 mg tablet 30 mg PO BID 08/16/22 08/16/22 gabapentin 300 mg capsule 300 mg PO Q8H 08/16/22 08/16/22 topiramate 25 mg tablet (Topamax) 25 mg PO DAILY 08/16/22 08/16/22 Previous Rx's Medication Instructions Recorded doxycycline hyclate 100 mg capsule 100 mg PO BID 10 days #20 caps 08/16/22 prednisone 50 mg tablet 50 mg PO DAILY 7 days #7 tabs 08/16/22 ketorolac 10 mg tablet 10 mg PO TID PRN pain #10 tabs 08/30/22 ondansetron 4 mg disintegrating 4 mg PO Q6H PRN nausea and 08/30/22 tablet vomiting #12 tabs ketorolac 10 mg tablet 10 mg PO TID PRN pain #10 tabs 03/16/23 methylprednisolone 4 mg tablets in See Rx Instructions .Route 03/16/23 a dose pack (Medrol (Christiano)) .COMPLEX #21 ea orphenadrine citrate 100 mg 100 mg PO BID PRN muscle pain #14 03/16/23 tablet,extended release tabs lisinopril 20 1 tab PO DAILY #14 tabs 04/13/23 mg-hydrochlorothiazide 12.5 mg tablet Allergies Allergy/AdvReac Type Severity Reaction Status Date / Time promethazine [From Phenergan] Allergy Intermediate Verified 08/16/22 16:40 Review of Systems ROS Narrative CONST: Denies fever, chills HENT: + runny nose, congestion. Denies sore throat EYES: Denies eye redness, visual disturbance RESP: Denies chest tightness, choking, cough, shortness of breath, stridor, wheezing CV: +chest pain.? Denies palpitations, peripheral edema GI: Denies abd pain, nausea, vomiting : Denies dysuria, flank pain MS: Denies back pain, myalgias SKIN: Denies color change, rash NEURO: + chronic headaches, numbness, lightheadedness, dizziness. Denies weakness PSYCHIATRIC: Denies confusion, agitation PFSH PFSH Social History Smoking status: Heavy tobacco smoker Exam Narrative Exam Narrative: Vital signs reviewed Nurses notes noted CONST: Nontoxic, well appearing, well nourished, in no distress.? No diaphoresis.?? HENT: normocephalic, atraumatic, moist mucous membrane, no abnormalities of the nose noted, hearing normal EYES: normal appearing conjunctiva, no apparent discharge bilat NECK: normal appearance, no JVD CV: normal rate, regular rhythm, no murmur, no peripheral edema RESP: normal effort, speaking in complete sentences. Lung sounds clear and equal bilat.? No wheezes, rales, rhonchi GI: normal bowel sounds, soft, nontender, no distension : no CVA tenderness MS: no edema, tenderness SKIN: no pallor NEURO: A&Ox 3 PSYCH: normal mood, affect Constitutional Vital Signs, click to edit/add: Last Vital Signs Temp 97.4 F L 04/13/23 18:39 Pulse 76 04/13/23 21:10 Resp 20 04/13/23 21:10 BP 142/98 H 04/13/23 21:29 Pulse Ox 98 04/13/23 20:01 O2 Del Method Room Air 04/13/23 18:39 Course Reevaluation(s) Reevaluation #1: BP still quite elevated at 172/110, ordered clonidine Time: 20:51 Reevaluation #2: Blood pressure improved to 142/98. Patient wanting to go home. Discussed with patient and family results, plan, and disposition. They voiced no concerns. Time: 21:37 Vital Signs Vital signs: Vital Signs Temperature 97.4 F L 04/13/23 18:39 Pulse Rate 93 H 04/13/23 18:39 Respiratory Rate 20 04/13/23 18:39 Blood Pressure 187/115 H 04/13/23 18:39 Pulse Oximetry 99 04/13/23 18:39 Oxygen Delivery Method Room Air 04/13/23 18:39 Temperature 97.4 F L 04/13/23 18:39 Pulse Rate 76 04/13/23 21:10 Respiratory Rate 20 04/13/23 21:10 Blood Pressure 142/98 H 04/13/23 21:29 Pulse Oximetry 98 04/13/23 20:01 Oxygen Delivery Method Room Air 04/13/23 18:39 MDM - Chest Pain MDM Narrative Medical decision making narrative: This is a pleasant 52-year-old female who presented to the emergency department with report of elevated blood pressure. States her blood pressure was checked while at an eye doctor appointment this afternoon. Patient denies any acute symptoms. However, she does have chronic chest pains, body aches, headaches, lightheadedness, dizziness. States history of Chiari malformation 1. Recently, she has had runny nose, congestion, but denies taking any [id number] medicines for that. Daughter states that she does drink a lot of energy drinks, especially in the morning. On arrival, afebrile, hypertensive, otherwise vital signs stable. On exam, nontoxic, well-appearing patient in no apparent distress. Heart regular rate and rhythm. Lung sounds were clear and equal bilaterally. No focal neurologic findings on exam. EKG reveals no acute changes. Labs reveal no leukocytosis, anemia, electrolyte imbalance, renal impairment. LFTs, lipase, magnesium unremarkable. High-sensitivity troponin will within normal limits. Repeat not performed as patient has had chest pain constantly for 1 week. Chest x-ray imaging, per radiologist reveals no acute findings. Patient initially treated with lisinopril/hydrochlorothiazide, 20/12.5. She did have some improvement, but was still quite elevated as noted in ED course above. Subsequent dose of clonidine was then given which gained comfortable improvement of her blood pressure to 142/98. elevated blood Pressure favored based on history and physical Hypertensive urgency/emergency less likely as blood pressure remained below 200 systolic. Endorgan injury less likely based on lab testing NC, ACS less likely based on negative EKG, cardiac markers. Disposition ? The patient was discharged. Plan: Patient will be discharged to home. Condition at time of disposition: stable and improved Patient will be started on lisinopril/HCTZ and instructed to call her PMD tomorrow as well as cut back on energy drinks and monitor her BP? Advised to follow up with her provider. Advised to return for any worsening and/or development of new, concerning signs or symptoms Lab Data Attestation: I reviewed the patient's lab results. Labs: Lab Results 04/13/23 Range/Units 19:00 WBC 11.3 H (4.0-11.0) 10^3/uL RBC 4.53 (4.20-5.40) 10^6/uL Hgb 12.7 (12.0-16.0) g/dL Hct 39.5 (36.0-48.0) % MCV 87.2 (81.0-99.0) fL MCH 28.0 (26.7-34.0) pg MCHC 32.2 (29.9-35.2) g/dL RDW 14.5 (11.0-15.0) % Plt Count 269 (150-450) 10^3/uL MPV 10.2 (9.5-13.5) fL Neut % (Auto) 59.1 (43.0-75.0) % Lymph % (Auto) 29.4 (20.5-60.0) % Randolph % (Auto) 4.7 (1.7-12.0) % Eos % (Auto) 6.0 (0.9-7.0) % Baso % (Auto) 0.4 (0.2-2.0) % Neut # (Auto) 6.7 H (1.4-6.5) 10^3/uL Lymph # (Auto) 3.3 (1.2-3.8) 10^3/uL Randolph # (Auto) 0.5 (0.3-0.8) 10^3/uL Eos # (Auto) 0.7 (0.0-0.7) 10^3/uL Baso # (Auto) 0.0 (0.0-0.1) 10^3/uL Abs Immat Gran (auto) 0.04 H (0.00-0.03) 10^3/uL Imm/Tot Granulo (auto) 0.4 (0.0-0.5) % Sodium 144 (136-145) mmol/L Potassium 3.5 (3.5-5.1) mmol/L Chloride 108 H (98-107) mmol/L Carbon Dioxide 25.1 (21.0-32.0) mmol/L Anion Gap 14.4 BUN 19.0 H (7.0-18.0) mg/dL Creatinine 1.17 H (0.55-1.02) mg/dL Est GFR ( Amer) 59 L (>=60) Est GFR (Non-Af Amer) 48 L (>=60) BUN/Creatinine Ratio 16.2 Glucose 87 (74-106) mg/dL Calcium 8.9 (8.5-10.1) mg/dL Magnesium 2.0 (1.8-2.4) mg/dL Total Bilirubin 0.4 (0.2-1.0) mg/dL AST 18 (15-37) U/L ALT 24 (14-59) U/L Alkaline Phosphatase 110 (46-116) U/L Troponin I High Sens 43.3 (4.0-51.3) pg/mL Total Protein 7.5 (6.4-8.2) g/dL Albumin 3.9 (3.4-5.0) g/dL Globulin 3.6 g/dL Albumin/Globulin Ratio 1.1 Lipase 28.0 (16.0-77.0) U/L Imaging Data Chest x-ray: Radiologist's impression: ITS Impressions Chest X-Ray 04/13/23 19:06 IMPRESSION: Unremarkable chest x-ray. Electronically authenticated by: DENISSE AVELAR Date: 04/13/2023 19:28 ECG Data Attestation: I personally reviewed and interpreted this ECG as follows: (EKG performed at 1854 hrs. reveals sinus rhythm at [address] elevation. Nonspecific T wave inversion only in lead III. No acute changes noted. Normal axis. No ectopy) ECG interpretation date: 04/13/23 ECG interpretation time: 18:54 Discharge Plan Discharge Chief Complaint: Chest Pain Clinical Impression: Elevated blood pressure reading, Chest pain Patient Disposition: Home, Self-Care Time of Disposition Decision: 21:34 Condition: Good Mode of Transportation: Private Vehicle Prescriptions / Home Meds: New lisinopril-hydrochlorothiazide 20-12.5 mg tablet 1 tab PO DAILY Qty: 14 0RF No Action ketorolac 10 mg tablet 10 mg PO TID PRN (Reason: pain) Qty: 10 0RF orphenadrine citrate 100 mg tablet extended release 100 mg PO BID PRN (Reason: muscle pain) Qty: 14 0RF methylprednisolone [Medrol (Christiano)] 4 mg tablets,dose pack See Rx Instructions .ROUTE .COMPLEX Qty: 21 0RF Rx Instructions: Taper as directed topiramate [Topamax] 25 mg tablet 25 mg PO DAILY buspirone 30 mg tablet 30 mg PO BID gabapentin 300 mg capsule 300 mg PO Q8H prednisone 50 mg tablet 50 mg PO DAILY 7 Days Qty: 7 0RF doxycycline hyclate 100 mg capsule 100 mg PO BID 10 Days Qty: 20 0RF ketorolac 10 mg tablet 10 mg PO TID PRN (Reason: pain) Qty: 10 0RF ondansetron 4 mg tablet,disintegrating 4 mg PO Q6H PRN (Reason: nausea and vomiting) Qty: 12 0RF Instructions: Hypertension (ED) Stand Alone Forms: Portal Instructions Referrals: KERLINE RAJAN [Primary Care Provider] - 1 week
--- NOTE | 2023-04-13 19:06 | XR_ITS ---
[address] [address] Patient Name: MISTI STONER MRN: [id number] date: 1970 Sex: F Assigned Patient Location: ER Current Patient Location: ER Accession/Order Number: [id number] Exam Date: 04/13/2023 19:09 Report Date: 04/13/2023 19:28 At the request of: YO PRADO Procedure: XR chest 1V Exam: Radiographs: XR chest 1V Reason for exam: chest pain Comparison: Chest x-ray dated 10/14/2017 XR/XR chest 1V IMPRESSION: Unremarkable chest x-ray. Electronically authenticated by: DENISSE AVELAR Date: 04/13/2023 19:28
--- NOTE | 2023-04-13 19:06 | ECG_ITS ---
[facility] Test Date: 2023-04-13 Pat Name: MISTI STONER Department: Room: - Gender: Female [employer]: : 1970 Requested By: FANNIE JESSICA Order Number: [id number] Reading MD: FANNIE JESSICA Measurements Intervals [place] Rate: 83 P: 58 IN: 146 QRS: 85 QRSD: 86 T: 16 QT: 374 QTc: 413 Interpretive Statements 1100 Sinus rhythm 4068 Nonspecific Twave abnormality 8102 Low QRS voltage in chest leads Non-Specific T wave inversion in III 9130 borderline ECG Compared to ECG 08/16/2022 17:41:35 Low QRS voltage now present Sinus arrhythmia no longer present T-wave abnormality no longer present Electronically Signed On 04-14-2023 5:35:52 EST by FANNIE JESSICA
[2023-04-13 19:15] LABS: Basophils Percent Auto 0.4 % (0.2-2.0); Eosinophils Absolute Auto 0.7 10^3/uL (0.0-0.7); Hematocrit 39.5 % (36.0-48.0); Hemoglobin 12.7 g/dL (12.0-16.0); Immature Granulocytes Abs Auto 0.04 10^3/uL (0.00-0.03); Immature Granulocytes Pct Auto 0.4 % (0.0-0.5); Lymphocytes Absolute Auto 3.3 10^3/uL (1.2-3.8); Lymphocytes Percent Auto 29.4 % (20.5-60.0); Mean Corpuscular HGB Conc 32.2 g/dL (29.9-35.2); Mean Corpuscular Volume 87.2 fL (81.0-99.0); Mean Platelet Volume 10.2 fL (9.5-13.5); Monocytes Absolute Auto 0.5 10^3/uL (0.3-0.8); Monocytes Percent Auto 4.7 % (1.7-12.0); Neutrophils Absolute Auto 6.7 10^3/uL (1.4-6.5); Neutrophils Percent Auto 59.1 % (43.0-75.0); Platelet Count 269 10^3/uL (150-450); Red Blood Count 4.53 10^6/uL (4.20-5.40); Red Cell Distribution Width 14.5 % (11.0-15.0); White Blood Count 11.3 10^3/uL (4.0-11.0)
[2023-04-13 19:31] LABS: Alanine Aminotransferase 24 U/L (14-59); Albumin Globulin Ratio 1.1; Albumin Level 3.9 g/dL (3.4-5.0); Alkaline Phosphatase 110 U/L (46-116); Anion Gap 14.4; Aspartate Amino Transferase 18 U/L (15-37); BUN Creatinine Ratio 16.2; Bilirubin Total 0.4 mg/dL (0.2-1.0); Calcium 8.9 mg/dL (8.5-10.1); Carbon Dioxide 25.1 mmol/L (21.0-32.0); Chloride 108 mmol/L (98-107); Estimated GFR (African America 59 (>=60); Estimated GFR (Non-African Ame 48 (>=60); Globulin 3.6 g/dL; Glucose 87 mg/dL (74-106); Potassium 3.5 mmol/L (3.5-5.1); Sodium 144 mmol/L (136-145); Total Protein 7.5 g/dL (6.4-8.2); Troponin I High Sensitivity 43.3 pg/mL (4.0-51.3)
[2023-04-13] MEDS: LISINOPRIL/HYDROCHLOROTHIAZIDE 20-12.5 MG TABLET 1 TAB PO (20:03)
[2023-04-13] MEDS: CLONIDINE HCL 0.1 MG TABLET PO (21:00)
== END 2023-04-13 21:50 | disposition home or self-care (01) ==
PROVIDERS: Physician Assistant; Emergency Provider Emergency Medicine
DX: R03.0 Elevated blood-pressure reading, without diagnosis of hypertension (principal); R07.9 Chest pain, unspecified; Z79.899 Other long term (current) drug therapy; G93.5 Compression of brain; F17.210 Nicotine dependence, cigarettes, uncomplicated
CPT/HCPCS: 36415; 71045; 80053; 83690; 83735; 84484; 85025; 93005; 99285